=== PATIENT | female | born 1945 | race Caucasian/White ===

== ENCOUNTER → 2017-01-10 | Outpatient (CLI) | payer BC ==
[~2017-01-10] MED LIST: ALBU0.08 INH; BROVANA 15 MCG/2 ML INH; CONJ0.3T3 PO; LEVAAER2 INH; PRED50TA PO; SIMV40TA2 PO; TIOTCAP INH
--- NOTE | 2017-01-10 09:05 | DIAGNOSTIC IMAGING REPORT ---
CHEST 2 VIEWS ROUTINE HISTORY: G47.34 Nocturnal [id number] COMPARISON: Chest 11/21/2014. FINDINGS: A few linear densities at the right lung base suggestive of subsegmental atelectasis or scarring. No pleural fusions. No pneumothorax. Focal density overlying the lower thoracic spine on the lateral view which is new from the prior studies. This measures 2.7 cm. IMPRESSION: Focal irregular density overlying the thoracic spine on the lateral view. This is new from the prior studies. Follow-up nonemergent chest CT is recommended for further evaluation. Electronically signed by: Santhosh Tan M.D. 01/10/2017 9:04 AM Dictated Date/Time: 01/10/2017 9:01 AM
--- NOTE | 2017-01-10 09:06 | DIAGNOSTIC IMAGING REPORT ---
ABDOMEN 2 VIEWS CLINICAL HISTORY: G47.34 Nocturnal [id number] GENERALIZED ABDOMINAL DISCOMFORT COMPARISON STUDY: No previous studies for comparison. FINDINGS: There is no free air. There are no transition zones indicate bowel obstruction. There is scattered stool throughout the colon. There are no abnormal abdominal calcifications. There is lumbar scoliosis. IMPRESSION: No evidence of bowel obstruction. No evidence of free air. Electronically signed by: John Webb M.D. 01/10/2017 9:05 AM Dictated Date/Time: 01/10/2017 9:01 AM
[2017-01-10 09:40] LABS: BASO % 0.3 %; BASO ABS # 0.02 K/uL (0-0.2); COMPLETE YES; EOS % 2.9 %; HEMATOCRIT 36.1 % (37-47); IG% 0.2 %; LYMPH ABS # 2.35 K/uL (1.2-3.4); MEAN CELL VOLUME 87.2 fL (80-100); MEAN CORPUSCULAR HGB CONC 33.2 g/dl (32-36); MEAN PLATELET VOLUME 9.4 fL (7.4-10.4); MONO % 11.3 %; NEUT % 49.3 %; PLATELET COUNT 197 K/uL (130-400); RED BLOOD COUNT 4.14 M/uL (4.2-5.4); WHITE BLOOD COUNT 6.53 K/uL (4.8-10.8)
[2017-01-10 09:56] LABS: ALB/GLOB RATIO 1.1 (0.9-2); ALT/SGPT 19 U/L (12-78); AST/SGOT 11 U/L (15-37); BLOOD UREA NITROGEN 16 mg/dl (7-18); BUN/CREATININE RATIO 18.8 (10-20); CALCIUM 8.8 mg/dl (8.5-10.1); CARBON DIOXIDE 31 mmol/L (21-32); CHLORIDE 108 mmol/L (98-107); CHOLESTEROL 171 mg/dl (0-200); CREATININE 0.86 mg/dl (0.60-1.20); GLUCOSE 84 mg/dl (70-99); POTASSIUM 3.7 mmol/L (3.5-5.1); SODIUM 146 mmol/L (136-145); TRIGLYCERIDES 114 mg/dl (0-150); VERY LOW DENSITY LIPOPROT CALC 23 mg/dl
[2017-01-10 10:04] LABS: ALKALINE PHOSPHATASE 86 U/L (45-117); CHOLESTEROL/HDL RATIO 3.4; HDL CHOLESTEROL 50 mg/dl; LDL CHOLESTEROL CALCULATED 98 mg/dl; TOTAL IRON BINDING CAPACITY 294 mcg/dl (250-450)
--- NOTE | 2017-01-17 08:34 | CODING QUERY MEDICAL NECESSITY ---
SUPPORTING DIAGNOSIS NEEDED A supporting diagnosis is required for the test/procedure performed on this patient in order for us to be reimbursed by the patient's insurance. Please provide a supporting diagnosis for the following test/procedure listed below next to the test name along with your signature. *If there is no additional diagnosis for this patient that would support the following test/procedure please document that below next to the test/procedure. Test(s)/Procedure(s) that require a supporting diagnosis: * VITAMIN B-12 LEVEL DIAGNOSIS: * DOS: 01/10/17 Provider Signature: Date: Thank you Constance Arita Health Information Management Once completed, please kindly fax back to [phone] For questions please call [phone]
== END | disposition home or self-care (01) ==
LOC: C.RAD 08:10
PROVIDERS: ATTEND Internal Medicine Pulmonary Disease
DX: G47.34 Idiopathic sleep related nonobstructive alveolar hypoventilation (principal); R06.02 Shortness of breath; R93.7 Abnormal findings on diagnostic imaging of other parts of musculoskeletal system; R53.83 Other fatigue; Z79.899 Other long term (current) drug therapy; M79.606 Pain in leg, unspecified

== ENCOUNTER → 2017-01-17 | Outpatient (CLI) | payer BC ==
[~2017-01-17] MED LIST changes: +OPTIRAY 320 IV PRN
--- NOTE | 2017-01-17 16:05 | DIAGNOSTIC IMAGING REPORT ---
CHEST CT WITH CONTRAST CT DOSE: 276.21 mGycm HISTORY: Abnormal chest x-ray. COPD TECHNIQUE: Multiaxial CT images of the chest were performed following the intravenous administration of contrast. COMPARISON: Chest 01/10/2017. FINDINGS: Mild emphysema. The central airways are patent. Multiple scattered irregular groundglass and nodular opacities seen within the lungs. Linear density within the right lower lobe posteriorly likely corresponds to the chest x-ray abnormality. No pleural effusions. No pneumothorax. No mediastinal or hilar lymphadenopathy. Mediastinal vascular structures are within normal limits. 1 cm hypodense lesion within the spleen. The visualized liver and adrenal glands are unremarkable. The heart is normal in size. IMPRESSION: 1. Multiple scattered irregular groundglass and nodular airspace opacities seen within the lungs. This likely represents mild inflammatory/infectious change. 2. Linear density within the right lower lobe posteriorly corresponds the chest x-ray abnormality. This also likely represents an area of inflammatory/infectious change. 3. Recommend [address] follow-up to ensure resolution of these findings. 4. Mild emphysema. Electronically signed by: Santhosh Tan M.D. 01/17/2017 4:04 PM Dictated Date/Time: 01/17/2017 3:35 PM
== END | disposition home or self-care (01) ==
LOC: C.CTS 14:59
PROVIDERS: ATTEND Internal Medicine Pulmonary Disease
DX: J44.9 Chronic obstructive pulmonary disease, unspecified (principal); R91.8 Other nonspecific abnormal finding of lung field

== ENCOUNTER → 2017-03-16 | Outpatient (CLI) | payer BC ==
[~2017-03-16] MED LIST changes: -OPTIRAY 320 IV PRN
--- NOTE | 2017-03-16 12:23 | DIAGNOSTIC IMAGING REPORT ---
CHEST 2 VIEWS ROUTINE HISTORY: Abnormal chest x-ray. Follow-up. COMPARISON: Chest 01/10/2017. Chest CT 01/17/2017. FINDINGS: No pneumothorax. No pleural effusions. The heart is normal in size. Right basilar airspace opacity has almost completely resolved. There is a linear density remaining suggesting scarring or atelectasis. Small faint linear density within left midlung zone may also represent scarring or atelectasis. IMPRESSION: 1. Near complete resolution of the right basilar airspace opacity. 2. Tiny linear density within left midlung zone may represent atelectasis or scarring. Electronically signed by: Santhosh Tan M.D. 03/16/2017 12:22 PM Dictated Date/Time: 03/16/2017 12:16 PM
--- NOTE | 2017-03-18 11:52 | PULMONARY FUNCTION TEST ---
Interpretation based off ATS criteria. SPIROMETRY: Moderate obstructive ventilatory disease, no significant reversibility. LUNG VOLUMES: Within normal limits. DIFFUSION CAPACITY: Mildly decreased diffusion capacity, but corrects to normal based off alveolar volume. INTERPRETATION: Moderate obstructive ventilatory disease.
== END | disposition home or self-care (01) ==
LOC: C.RC 11:01
PROVIDERS: ATTEND Physician Assistant
DX: J44.9 Chronic obstructive pulmonary disease, unspecified (principal); R06.02 Shortness of breath

== ENCOUNTER → 2017-03-29 | Outpatient (CLI) | payer BC ==
[~2017-03-29] MED LIST changes: +OPTIRAY 320 IV PRN
--- NOTE | 2017-03-29 12:12 | DIAGNOSTIC IMAGING REPORT ---
CHEST CT WITH CONTRAST CT DOSE: 305.71 mGycm HISTORY: Parenchymal nodularity J44.9 Chronic obstructive pulmonary disease SCHEDULED 01-17-17 TECHNIQUE: Multiaxial CT images of the chest were performed following the intravenous administration of contrast. COMPARISON: 01/07/2017 FINDINGS: There is a groundglass and parenchymal nodularity show evidence for Lauren and waning. There is complete resolution in the lung bases are regions. There is subtle variability involving the left peripheral left upper lobe. Minimal residual is identified anterior right middle lobe. Pulmonary apices appear clear. Baseline emphysematous changes are similar. Several small reactive mediastinal nodes are unchanged. IMPRESSION: 1. Waxing/waning parenchymal nodularity, inflammatory change throughout both hemithoraces. 2. Although in general slightly improved., Mild variable residual nodularity is present. 3. Given this variability, it is most likely inflammatory with a one-year follow-up recommended Electronically signed by: Ramirez Suarez M.D. 03/29/2017 12:10 PM Dictated Date/Time: 03/29/2017 12:06 PM
== END | disposition home or self-care (01) ==
LOC: C.CTS 11:36
PROVIDERS: ATTEND Physician Assistant
DX: R93.8 Abnormal findings on diagnostic imaging of other specified body structures (principal); J44.9 Chronic obstructive pulmonary disease, unspecified

== ENCOUNTER → 2018-03-22 | Outpatient (CLI) | payer BC ==
[~2018-03-22] MED LIST changes: -OPTIRAY 320 IV PRN
[2018-03-22 17:02] LABS: ALBUMIN 4.1 gm/dl (3.4-5.0); ALKALINE PHOSPHATASE 92 U/L (45-117); ALT/SGPT 27 U/L (12-78); AST/SGOT 19 U/L (15-37); BLOOD UREA NITROGEN 24 mg/dl (7-18); CALCIUM 9.1 mg/dl (8.5-10.1); CARBON DIOXIDE 30 mmol/L (21-32); CREATININE 0.98 mg/dl (0.60-1.20); GLUCOSE 139 mg/dl (70-99); POTASSIUM 4.3 mmol/L (3.5-5.1); SODIUM 140 mmol/L (136-145); TOTAL PROTEIN 7.4 gm/dl (6.4-8.2)
[2018-03-22 17:53] LABS: FOLLICLE STIMULAT HORMONE 69.65 IU/L; LUTEINIZING HORMONE 26.99 IU/L
== END | disposition home or self-care (01) ==
LOC: C.LAB1850 14:43
PROVIDERS: ATTEND Physician Assistant
DX: R10.9 Unspecified abdominal pain (principal); E78.00 Pure hypercholesterolemia, unspecified; R93.8 Abnormal findings on diagnostic imaging of other specified body structures

== ENCOUNTER 2023-11-02 11:29 | Inpatient (IN) ==
--- NOTE | 2023-11-02 12:06 | XRay Report ---
XR chest 1V not portable CLINICAL HISTORY: Shortness of breath. COMPARISON STUDY: Chest CT June 26, 2023. Chest radiograph October 25, 2023. FINDINGS: Lung volumes are normal. Lungs are clear. There is no pneumothorax or pleural effusion. Car diac size is normal. Mediastinal contours are normal. There is no evidence for pulmonary edema. IMPRESSION: No acute cardiopulmonary findings. ACT 112: Negative or not required by law. Electronically signed by: Sandeep Chavira M.D. 11/02/2023 12:05 PM
[2023-11-02 12:36] LABS: Basophils # (auto) 0.03 K/uL (0.00-0.20); Basophils % (auto) 0.2 %; Eosinophils # (auto) 0.05 K/uL (0.00-0.50); Eosinophils % (auto) 0.3 %; Hematocrit (blood only) 39.6 % (37.0-47.0); Hemoglobin 13.3 g/dl (12.0-16.0); Immature Granulocytes # (auto) 0.09 K/uL (0.01-0.20); Immature Granulocytes % (auto) 0.6 %; Lymphocytes # (auto) 0.82 K/uL (1.20-3.40); Lymphocytes % (auto) 5.1 %; Mean Corpuscular Hemoglobin 29.3 pg (25.0-34.0); Mean Corpuscular Hgb Conc 33.6 g/dL (32.0-36.0); Mean Corpuscular Volume 87.2 fL (80.0-100.0); Mean Platelet Volume 8.9 fL (9.4-12.4); Monocytes # (auto) 0.68 K/uL (0.11-0.59); Monocytes % (auto) 4.2 %; Neutrophils # (auto) 14.42 K/uL (1.40-6.50); Neutrophils % (auto) 89.6 %; Platelet Count 215 K/uL (130-400); RDW Coefficient of Variation 13.9 % (11.5-14.5); RDW Standard Deviation 44.6 fL (36.4-46.3); Red Blood Count 4.54 M/uL (4.20-5.40); White Blood Count 16.09 K/ul (4.8-10.8)
[2023-11-02 12:50] LABS: Albumin Globulin Ratio 1.4 (0.9-2); Albumin Level 4.3 gm/dl (3.4-5.0); BUN Creatinine Ratio 24.1 (10-20); Bilirubin,Total 0.5 mg/dl (0.2-1.0); Calcium 9.6 mg/dl (8.6-10.3); Creatinine Clr Calc Pharmacy 51.1 ml/min; Est GFR (African American) 78.8 ml/min; Globulin 3.1 gm/dl (2.5-4.0); Potassium 4.1 mmol/L (3.5-5.1); Total Protein 7.4 gm/dl (6.0-8.3)
[2023-11-02 12:55] LABS: Troponin I High Sensitivity 6.5 pg/ml (0-14)
[2023-11-02 13:02] LABS: INR 0.9 (0.9-1.1); Partial Thromboplastin Ratio 0.9; Partial Thromboplastin Time 25 Seconds (21-31); Prothrombin Time 10.3 Seconds (9.0-12.0)
--- NOTE | 2023-11-02 15:04 | Pulmonary Consultation ---
Date of Consultation November 02, 2023 Assessment & Plan (1) Acute exacerbation of chronic obstructive airways disease: (2) Pulmonary scarring: (3) History of tobacco use: (4) Chronic obstructive pulmonary disease: (5) Dyspnea: (6) Acute bronchitis: (7) Bilateral wheezing: Plan PFT 01/28/2023: Severe obstructive lung dysfunction with significant bronchodilator response, air trapping, normal DLCO FVC 2.01 L 68%, FEV1 0.94 L 43%, FEV1/FVC 47%, RV 133%, TLC 95%, RV/TLC 124%, DLCO 81% CTA chest 11/02/2023 personally reviewed: Bilateral apical pleural scarring Centrilobular and paraseptal emphysema appreciated bilaterally Tree-in-bud opacities appreciated bilaterally especially in the lower lobes No significant mediastinal lymphadenopathy ABG 11/02/2023: 7.55/29/143 on RA -- COPD exacerbation with acute bronchitis Failed outpatient therapy Respiratory bio fire negative for everything on 11/02/2023 -- Severe COPD On BrezTri at home along with montelukast Plan: Upper airway clearance technique with hypertonic saline nebulized, Mucinex and flutter valve Continue with Solu-Medrol and inhaled bronchodilators Azithromycin 500 mg for 5 days, QTc 398 Case discussed with primary team Please note the above document was generated using voice recognition software. It may contain grammatical, syntax or spelling errors.Any formal questions or concerns about the content, text or information contained within the body of this dictation should be directly addressed to the provider for clarification. History of Present Illness History of Present Illness 77-year-old female presented to hospital complains of shortness of breath Past medical history: GERD, anxiety, COPD asthma overlap syndrome Pulmonary consulted for the same Patient follows up with Dr. Pelletier as an outpatient. Notes reviewed ED physician gave me a signout At the time of examination patient was getting nebulizer treatment She was saturating 100%, in mild respiratory distress. Able to talk in full sentences. She says she has been having issues with breathing for approximately a month. She was given multiple courses of prednisone but no antibiotics. Does complain of having feeling of phlegm but unable to bring it up When she does bring up phlegm is mostly clear. Denies any hemoptysis No fever or chills No dysuria, or diarrhea No headache, no blurry vision Social history: Approximately 13-[id number] smoking history, quit at the age of 54 Allergies Allergy/AdvReac Type Severity Reaction Status Date / Time No Known Drug Allergies Allergy Verified 10/25/23 10:30 Home Medications Medication Instructions Recorded Confirmed Type cholecalciferol (vitamin D3) 50 50 mcg PO QAM 09/24/19 11/02/23 History mcg (2,000 unit) capsule (Vitamin D3) cetirizine 5 mg-pseudoephedrine ER 1 tab PO Q12H PRN allergy symptoms 08/05/22 11/02/23 Rx 120 mg tablet,extended #60 tabs release,12hr (Allergy Relief-D (cetirizine)) multivitamin 1 tab PO QAM 08/20/22 11/02/23 History albuterol sulfate 90 mcg/actuation 2 inh inhalation QID PRN shortness 03/14/23 11/02/23 Rx aerosol inhaler of breath or wheezing #8.5 grams montelukast 10 mg tablet 10 mg PO DAILY #90 tabs 06/06/23 11/02/23 Rx (Singulair) escitalopram oxalate 5 mg tablet 5 mg PO QAM #90 tabs 07/13/23 11/02/23 Rx (Lexapro) simvastatin 20 mg tablet 10 mg (1/2 x 20 mg) PO QAM #90 tabs 08/26/23 11/02/23 Rx budesonide 160 mcg-glycopyr 9 2 inh inhalation DAILY 10/25/23 11/02/23 History mcg-formot 4.8 mcg/actuation HFA inhaler (Breztri Aerosphere) guaifenesin 600 mg tablet, 600 mg PO BID 10/25/23 11/02/23 History extended release 12 hr (Mucinex) ipratropium 0.5 mg-albuterol 3 mg 3 ml inhalation Q6H PRN wheezing 10/25/23 11/02/23 Rx (2.5 mg base)/3 mL nebulization #90 mL soln omeprazole magnesium 10 mg oral 10 mg PO DAILY 10/25/23 11/02/23 History suspension,delayed release (Prilosec) prednisone 10 mg tablets in a dose See Rx Instructions .Route 10/25/23 11/02/23 Rx pack .COMPLEX #42 ea vitamins A,C,B-naon-cvqefv 4,296 1 cap PO BID 10/25/23 11/02/23 History mcg-226 mg-90 mg capsule (PreserVision AREDS) Patient History Medical History Viral illness Pulmonary scarring Mediastinal lymphadenopathy Acute viral bronchitis Hypoxia Pulmonary nodule 1 cm or greater in diameter History of COVID-19 On home oxygen therapy Hyperlipidemia Nocturnal hypoxemia Asthma-COPD overlap syndrome Osteoarthritis GERD (gastroesophageal reflux disease) History of skin cancer Macular degeneration of both eyes Anxiety Chronic obstructive pulmonary disease Surgical History History of surgery Hx of bilateral cataract extraction Hx of colonoscopy Family History Mother Asthma Heart disease Hypertension Brother Cancer Stroke Bladder cancer Myocardial infarction Sister Hypertension Adverse anesthesia outcome Myocardial infarction Other Alzheimer disease COPD (chronic obstructive pulmonary disease) Diabetes No family history of bleeding disorder Denies family history of Ovarian cancer Prostate cancer Breast cancer Colorectal cancer Social History Smoking Status: Former smoker Tobacco Type: Cigarettes Age Started Using Tobacco: 17; Age Quit Using Tobacco: 54; packs per day: 1; Second Hand Exposure: No; Do You Dip or Chew Tobacco: No; Hx Alcohol Use: No Hx Substance Use: No Preferred Language: Pashto Communication Ability: Effective Visual Impairment: No Limitations Hearing Ability: Normal 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 Beliefs That Will Affect Care: None marital status: / Current Living Situation: Alone current occupational status: retired Feels Safe at Home: Yes Childhood Exposure to Second-Hand Smoke: Yes Dental Care, Regularly: Yes Physical Activity Frequency: Daily Seatbelt Use: always Sunscreen Use: Yes Assistive Devices: Denture - Upper, Denture - Lower and Glasses Review of Systems 2 Review of Systems: All systems reviewed & are unremarkable except as noted in HPI & below Physical Exam 2 Physical Exam: Constitutional: No acute distress HEENT: EOMI, PERRLA Respiratory system: Decreased air entry bilaterally, no rhonchi, positive expiratory wheeze bilaterally, positive mild crackles CVS: S1-S2 positive, no murmurs or gallops Abdomen: Soft, nontender, nondistended, positive bowel sounds x4 Extremities: +2 pulses bilaterally radialis/ dorsalis pedis, no cyanosis, no edema Neuro: Awake alert oriented x3 Psych: Normal mood and affect G/U: No [place] Skin: no rashes, warm and dry Lymphatic: no cervical or axillary lymphadenopathy Results & Data Results & Data Vital Signs (Past 12 Hours) Vital Signs Temp Pulse Resp BP Pulse Ox O2 Del Method 11/02/23 14:50 75 23 94 11/02/23 14:50 94 Room Air 11/02/23 14:40 72 15 93 11/02/23 14:30 110/55 L 11/02/23 14:30 71 22 94 11/02/23 14:25 72 11/02/23 14:20 71 19 94 11/02/23 14:18 73 19 94 11/02/23 11:36 36.5 C 98 H 20 116/69 92 Room Air Laboratory Results 11/02/23 12:14 11/02/23 12:14 PG Care Time/CCT Total # of Minutes Spent Total Time Spent with Patient: Total time spent is greater than 50% in coordination of care (as documented) at patient's floor/unit and/or counseling patient: Coding Level of Care Code 30618 INT INP/OBS CARE 3/75MIN Diagnoses Acute exacerbation of chronic obstructive airways disease J44.1 Pulmonary scarring J98.4 History of tobacco use Z87.891 Chronic obstructive pulmonary disease J44.9 Dyspnea R06.00 Acute bronchitis J20.9 Bilateral wheezing R06.2
[2023-11-02] MEDS ORDERED: methylPREDNISolone 125 MG/2 ML VIAL IV STA (15:24)
[2023-11-02] MEDS ORDERED: ALBUT/IPRATROP 3MG/0.5MG NEB 3 ML VIAL NEB STA (15:24)
--- NOTE | 2023-11-02 15:24 | Electrocardiogram Report ---
Test Reason : Blood Pressure : / mmHG Vent. Rate : 090 BPM Atrial Rate : 090 BPM P-R Int : 110 ms QRS Dur : 082 ms QT Int : 326 ms P-R-T Axes : 080 074 072 degrees QTc Int : 398 ms Sinus rhythm Right atrial enlargement Nonspecific ST abnormality Abnormal ECG When compared with ECG of 19-OCT-2023 11:38, Nonspecific T wave abnormality now evident in Lateral leads Confirmed by Rudy Fung ([id number]) on 11/02/2023 3:23:53 PM Referred By: Confirmed By:Eb Fung
--- NOTE | 2023-11-02 15:33 | Emergency Department Note ---
Impression & Plan Chronic obstructive pulmonary disease, Dyspnea, Bilateral wheezing ED Provider Note NAME: RAFAEL KAMARA AGE: 77 SEX: Female INFORMANT: Patient ED PROVIDER(S): Jordy Posey MD CHIEF COMPLAINT: Shortness of breath PLAN: Disposition: Admitted Outpatient prescription management: none Referral: None MEDICAL DECISION MAKING: Patient presented because of shortness of breath. Unfortunately she has not gotten better even with the last hospitalization and recent steroid use. Patient had wheezing even though she was not hypoxic. She has very significant dyspnea with minimal exertion. She has a mild leukocytosis on CBC, likely related to her steroids. Patient had an unremarkable chest x-ray except for COPD findings. Patient was given a DuoNeb and Solu-Medrol IV. I discussed the case with Dr. Muhammad of pulmonary. He recommended admission. We did discuss CT imaging. This was ordered. Further management in the hospital will be necessary. Consultation was made with Dr. Russell Lopez of the [facility] service. Patient was evaluated in the ER for further management. Care/management discussed with: Discussed with leasing manager Level of care consideration(s): After review of the information above and other included data, I feel the patient requires escalation of care to admission. Triage Nursing notes: reviewed and agree them. Vital Signs: reviewed and remarkable for no significant abnormalities Additional History obtained from: none Chronic Medical/Social Conditions affecting care: COPD Prior/ Outside/ External records reviewed: none Differential Diagnosis: Reactive airway disease, pneumonia, pneumothorax, COPD, CHF, infections, cardiac ischemia, pulmonary embolism, musculoskeletal, gastrointestinal, as well as other pathologies. Diagnostics, independently interpreted by me: ECG: Twelve-lead ECG reveals a sinus rhythm at 90 bpm. Short MS. Rate intra enlargement. Nonspecific ST abnormality anterolaterally. No ST elevation. No TWI. Cardiac Monitoring: Cardiac monitoring ordered by me: The patient was placed on continuous cardiac monitoring and observed. It revealed a normal sinus rhythm at 85 beats per minute without ectopy or evidence of dysrhythmia. Medical decision rules: none Imaging studies: Chest x-ray. Findings: A chest x-ray was performed and revealed no pneumothorax, effusion, infiltrate, pulmonary edema, free air under the diaphragm, or wide mediastinum. COPD findings present HPI: 77 year old Female arrives for evaluation of shortness of breath and wheezing. Patient notes over the last several weeks she has had problems with wheezing and difficulty with dyspnea on exertion. Patient was recently admitted and also seen by her primary physician. She notes they were for the same problem. No recent URI symptoms. The patient is currently on a steroid taper and unfortunately with that, her oxygen, and DuoNebs she is not getting any better. Pt denies LOC, headache, fevers, chills, diaphoresis, visual changes, neck pain, chest pain, nausea, vomiting, abdominal pain, back pain, melena, hematochezia, urinary symptoms, numbness, weakness, lymphadenopathy, rash, or other complaints.. PAST MEDICAL HISTORY: See Below, COPD PAST SURGICAL HISTORY: See Below, SOCIAL HISTORY: See Below, HOME MEDICATIONS: See Below ALLERGIES: See Below VITALS: See Below PHYSICAL EXAMINATION: GENERAL: Awake, alert, mildly dyspneic-appearing, in no distress HENT: Normocephalic, atraumatic. Oropharynx unremarkable. EYES: Normal conjunctiva. Sclera non-icteric. NECK: Inspection normal. Non-tender. Supple. No nuchal rigidity. FROM. No masses. RESPIRATORY: Scattered bilateral wheezes. No rales. Increased respiratory effort. CARDIAC: Normal rate. Normal rhythm. No murmurs. No rubs. Extremities warm and well perfused. Pulses equal. No JVD. GI: Soft, non-distended. No tenderness to palpation. No rebound or guarding. No masses. RECTAL: Deferred. MUSCULOSKELETAL: Atraumatic. Chest examination reveals no tenderness. The back is symmetrical on inspection without obvious abnormality. There is no CVA tenderness to palpation. No joint edema. LOWER EXTREMITIES: Calves are equal size bilaterally and non-tender. No edema. No discoloration. NEURO: Normal sensorium. No sensory or motor deficits noted. SKIN: No rash or jaundice noted. PROCEDURES: none CRITICAL CARE: none OBSERVATION NOTE: none Past Med/Surg History Medical History Viral illness Pulmonary scarring Mediastinal lymphadenopathy Acute viral bronchitis Hypoxia Pulmonary nodule 1 cm or greater in diameter History of COVID-19 On home oxygen therapy Hyperlipidemia Nocturnal hypoxemia Asthma-COPD overlap syndrome Osteoarthritis GERD (gastroesophageal reflux disease) History of skin cancer Macular degeneration of both eyes Anxiety Chronic obstructive pulmonary disease Surgical History History of surgery Hx of bilateral cataract extraction Hx of colonoscopy Family History Mother Asthma Heart disease Hypertension Brother Cancer Stroke Bladder cancer Myocardial infarction Sister Hypertension Adverse anesthesia outcome Myocardial infarction Other Alzheimer disease COPD (chronic obstructive pulmonary disease) Diabetes No family history of bleeding disorder Denies family history of Ovarian cancer Prostate cancer Breast cancer Colorectal cancer Social History Smoking Status: Former smoker Tobacco Type: Cigarettes Age Started Using Tobacco: 17; Age Quit Using Tobacco: 54; packs per day: 1; Second Hand Exposure: No; Do You Dip or Chew Tobacco: No; Hx Alcohol Use: No Hx Substance Use: No Preferred Language: Mongolian Communication Ability: Effective Visual Impairment: No Limitations Hearing Ability: Normal Scanner Supervisor Required: No Beliefs That Will Affect Care: None marital status: / Current Living Situation: Alone current occupational status: retired Feels Safe at Home: Yes Childhood Exposure to Second-Hand Smoke: Yes Dental Care, Regularly: Yes Physical Activity Frequency: Daily Seatbelt Use: always Sunscreen Use: Yes Assistive Devices: Denture - Upper, Denture - Lower and Glasses Allergies Allergies Allergy/AdvReac Type Severity Reaction Status Date / Time No Known Drug Allergies Allergy Verified 10/25/23 10:30 Home Meds Home Medications Medication Instructions Recorded Confirmed cholecalciferol (vitamin D3) 50 50 mcg PO QAM 09/24/19 11/02/23 mcg (2,000 unit) capsule (Vitamin D3) multivitamin 1 tab PO QAM 08/20/22 11/02/23 budesonide 160 mcg-glycopyr 9 2 inh inhalation DAILY 10/25/23 11/02/23 mcg-formot 4.8 mcg/actuation HFA inhaler (Breztri Aerosphere) guaifenesin 600 mg tablet, 600 mg PO BID 10/25/23 11/02/23 extended release 12 hr (Mucinex) omeprazole magnesium 10 mg oral 10 mg PO DAILY 10/25/23 11/02/23 suspension,delayed release (Prilosec) vitamins A,C,N-eifz-oglmxd 4,296 1 cap PO BID 10/25/23 11/02/23 mcg-226 mg-90 mg capsule (PreserVision AREDS) Previous Rx's Medication Instructions Recorded cetirizine 5 mg-pseudoephedrine ER 1 tab PO Q12H PRN allergy symptoms 08/05/22 120 mg tablet,extended #60 tabs release,12hr (Allergy Relief-D (cetirizine)) albuterol sulfate 90 mcg/actuation 2 inh inhalation QID PRN shortness 03/14/23 aerosol inhaler of breath or wheezing #8.5 grams montelukast 10 mg tablet 10 mg PO DAILY #90 tabs 06/06/23 (Singulair) escitalopram oxalate 5 mg tablet 5 mg PO QAM #90 tabs 07/13/23 (Lexapro) simvastatin 20 mg tablet 10 mg (1/2 x 20 mg) PO QAM #90 tabs 08/26/23 ipratropium 0.5 mg-albuterol 3 mg 3 ml inhalation Q6H PRN wheezing 10/25/23 (2.5 mg base)/3 mL nebulization #90 mL soln prednisone 10 mg tablets in a dose See Rx Instructions .Route 10/25/23 pack .COMPLEX #42 ea Results & Data (ED) Vital Signs Vital Signs - 24 hr 11/02/23 11:36 11/02/23 14:18 11/02/23 14:20 Temperature 36.5 C Temperature Source Temporal Artery Scan Pulse Rate 98 H 73 71 Pulse Rate [Exercises] Pulse Rate from SpO2 Sensor 72 71 Respiratory Rate 20 19 19 Respiratory Depth Normal Blood Pressure 116/69 Blood Pressure Mean 84 Blood Pressure Position Sitting Pulse Oximetry 92 94 94 Pulse Oximetry [Exercises] Oxygen Delivery Method Room Air Oxygen Flow Rate Sepsis Recent Fever Within 48 Hours No Sepsis New/Unexplained Change in Mental Status No Sepsis Action Taken by Nursing No Action Required 11/02/23 14:25 11/02/23 14:30 11/02/23 14:30 Temperature Temperature Source Pulse Rate 72 71 Pulse Rate [Exercises] Pulse Rate from SpO2 Sensor 72 Respiratory Rate 22 Respiratory Depth Blood Pressure 110/55 L Blood Pressure Mean 76 Blood Pressure Position Pulse Oximetry 94 Pulse Oximetry [Exercises] Oxygen Delivery Method Oxygen Flow Rate Sepsis Recent Fever Within 48 Hours Sepsis New/Unexplained Change in Mental Status Sepsis Action Taken by Nursing 11/02/23 14:40 11/02/23 14:50 11/02/23 14:50 Temperature Temperature Source Pulse Rate 72 75 Pulse Rate [Exercises] Pulse Rate from SpO2 Sensor 71 74 Respiratory Rate 15 23 Respiratory Depth Blood Pressure Blood Pressure Mean Blood Pressure Position Pulse Oximetry 93 94 94 Pulse Oximetry [Exercises] Oxygen Delivery Method Room Air Oxygen Flow Rate Sepsis Recent Fever Within 48 Hours Sepsis New/Unexplained Change in Mental Status Sepsis Action Taken by Nursing 11/02/23 15:00 11/02/23 15:00 11/02/23 15:00 Temperature Temperature Source Pulse Rate 73 Pulse Rate [Exercises] Pulse Rate from SpO2 Sensor 72 Respiratory Rate 18 Respiratory Depth Blood Pressure Blood Pressure Mean Blood Pressure Position Pulse Oximetry 95 95 93 Pulse Oximetry [Exercises] Oxygen Delivery Method Room Air Room Air Oxygen Flow Rate 0 Sepsis Recent Fever Within 48 Hours Sepsis New/Unexplained Change in Mental Status Sepsis Action Taken by Nursing 11/02/23 15:00 11/02/23 15:10 11/02/23 15:20 Temperature Temperature Source Pulse Rate 74 72 Pulse Rate [Exercises] Pulse Rate from SpO2 Sensor 75 73 Respiratory Rate 17 12 Respiratory Depth Blood Pressure 118/68 Blood Pressure Mean 87 Blood Pressure Position Pulse Oximetry 93 94 Pulse Oximetry [Exercises] Oxygen Delivery Method Oxygen Flow Rate Sepsis Recent Fever Within 48 Hours Sepsis New/Unexplained Change in Mental Status Sepsis Action Taken by Nursing 11/02/23 15:30 11/02/23 15:31 11/02/23 15:31 Temperature Temperature Source Pulse Rate 71 73 Pulse Rate [Exercises] Pulse Rate from SpO2 Sensor 70 75 Respiratory Rate 13 18 Respiratory Depth Blood Pressure 115/69 Blood Pressure Mean 87 Blood Pressure Position Pulse Oximetry 94 94 Pulse Oximetry [Exercises] Oxygen Delivery Method Oxygen Flow Rate Sepsis Recent Fever Within 48 Hours Sepsis New/Unexplained Change in Mental Status Sepsis Action Taken by Nursing 11/02/23 15:40 11/02/23 15:40 11/02/23 16:00 Temperature Temperature Source Pulse Rate 86 Pulse Rate [Exercises] 90 Pulse Rate from SpO2 Sensor 78 86 Respiratory Rate 23 Respiratory Depth Blood Pressure Blood Pressure Mean Blood Pressure Position Pulse Oximetry 94 96 Pulse Oximetry [Exercises] 92 Oxygen Delivery Method Room Air Oxygen Flow Rate Sepsis Recent Fever Within 48 Hours Sepsis New/Unexplained Change in Mental Status Sepsis Action Taken by Nursing 11/02/23 16:01 11/02/23 16:01 11/02/23 16:10 Temperature Temperature Source Pulse Rate 91 H 76 Pulse Rate [Exercises] Pulse Rate from SpO2 Sensor 90 76 Respiratory Rate 21 15 Respiratory Depth Blood Pressure 151/60 H Blood Pressure Mean 119 Blood Pressure Position Pulse Oximetry 95 100 Pulse Oximetry [Exercises] Oxygen Delivery Method Oxygen Flow Rate Sepsis Recent Fever Within 48 Hours Sepsis New/Unexplained Change in Mental Status Sepsis Action Taken by Nursing 11/02/23 16:20 Temperature Temperature Source Pulse Rate 88 Pulse Rate [Exercises] Pulse Rate from SpO2 Sensor 89 Respiratory Rate 22 Respiratory Depth Blood Pressure Blood Pressure Mean Blood Pressure Position Pulse Oximetry 97 Pulse Oximetry [Exercises] Oxygen Delivery Method Oxygen Flow Rate Sepsis Recent Fever Within 48 Hours Sepsis New/Unexplained Change in Mental Status Sepsis Action Taken by Nursing Laboratory Data 11/02/23 12:14 11/02/23 12:14 Lab Results 11/02/23 11/02/23 Range/Units 12:14 14:54 WBC 16.09 H (4.8-10.8) K/ul RBC 4.54 (4.20-5.40) M/uL Hgb 13.3 (12.0-16.0) g/dl Hct 39.6 (37.0-47.0) % MCV 87.2 (80.0-100.0) fL MCH 29.3 (25.0-34.0) pg MCHC 33.6 (32.0-36.0) g/dL RDW Std Deviation 44.6 (36.4-46.3) fL RDW Coeff of [place] 13.9 (11.5-14.5) % Plt Count 215 (130-400) K/uL MPV 8.9 L (9.4-12.4) fL Immature Gran % (Auto) 0.6 % Neut % (Auto) 89.6 % Lymph % (Auto) 5.1 % [place] % (Auto) 4.2 % Eos % (Auto) 0.3 % Baso % (Auto) 0.2 % Neut # (Auto) 14.42 H (1.40-6.50) K/uL Lymph # (Auto) 0.82 L (1.20-3.40) K/uL [place] # (Auto) 0.68 H (0.11-0.59) K/uL Eos # (Auto) 0.05 (0.00-0.50) K/uL Baso # (Auto) 0.03 (0.00-0.20) K/uL Immature Gran # (Auto) 0.09 (0.01-0.20) K/uL PT 10.3 (9.0-12.0) Seconds INR 0.9 (0.9-1.1) APTT 25 (21-31) Seconds PTT Ratio 0.9 Sodium 140 (136-145) mmol/L Potassium 4.1 (3.5-5.1) mmol/L Chloride 105 (98-107) mmol/L Carbon Dioxide 28 (21-32) mmol/L Anion Gap 7 (3-11) BUN 20 (6-23) mg/dl Creatinine 0.83 (0.6-1.2) mg/dl Est Cr Clr Drug Dosing 51.1 ml/min Est GFR ( Amer) 78.8 ml/min Est GFR (Non-Af Amer) 68.0 ml/min BUN/Creatinine Ratio 24.1 H (10-20) Glucose 111 H (70-99(Fasting)) mg/dl Calcium 9.6 (8.6-10.3) mg/dl Magnesium 2.3 (1.7-2.4) mg/dl Total Bilirubin 0.5 (0.2-1.0) mg/dl AST 17 (13-39) U/L ALT 21 (7-52) U/L Alkaline Phosphatase 80 (34-104) U/L Troponin I High Sens 6.5 (0-14) pg/ml Total Protein 7.4 (6.0-8.3) gm/dl Albumin 4.3 (3.4-5.0) gm/dl Globulin 3.1 (2.5-4.0) gm/dl Albumin/Globulin Ratio 1.4 (0.9-2) Adenovirus (PCR) Not Detected (NotDetected) B. pertussis DNA (PCR) Not Detected (NotDetected) B.parapertussis DNA PCR Not Detected (NotDetected) C. pneumoniae DNA (PCR) Not Detected (NotDetected) Coronavirus OC43 (PCR) Not Detected (NotDetected) Coronavirus HKU1 (PCR) Not Detected (NotDetected) Coronavirus 229E (PCR) Not Detected (NotDetected) SARS-CoV-2 (PCR) Not Detected (NotDetected) Coronavirus NL63 (PCR) Not Detected (NotDetected) Human Metapneumovir PCR Not Detected (NotDetected) Influenza Type A (PCR) Not Detected (NotDetected) Influenza Type B (PCR) Not Detected (NotDetected) M. pneumoniae (PCR) Not Detected (NotDetected) Parainfluenza 1 (PCR) Not Detected (NotDetected) Parainfluenza 2 (PCR) Not Detected (NotDetected) Parainfluenza 3 (PCR) Not Detected (NotDetected) Parainfluenza 4 (PCR) Not Detected (NotDetected) RSV (PCR) Not Detected (NotDetected) Entero/Rhino (PCR) Not Detected (NotDetected) Administered Medications Albuterol (Albut/Ipratrop 3mg/0.5mg Neb 3 Ml Vial) 3 ml NEB QIDR [facility]; Protocol Stop: 12/02/23 18:59 Last Admin: 11/02/23 16:46 Dose: 3 ml Documented By: EVANS Budesonide (Budesonide 0.5 Mg/2 Ml Vial (Pulmicort)) 0.5 mg NEB BIDR [facility] Stop: 12/02/23 18:59 Last Admin: 11/02/23 18:17 Dose: 0.5 mg Documented By: CARTER Enoxaparin Sodium (Enoxaparin Inj 40 Mg/0.4 Ml Syr) 40 mg SQ Q24H CARMEN Stop: 12/02/23 20:59 Last Admin: 11/02/23 21:01 Dose: 40 mg Documented By: CARLOS A Formoterol Fumarate (Formoterol 20 Mcg/2 Ml Vial) 20 mcg NEB BIDR [facility] Stop: 12/02/23 18:59 Last Admin: 11/02/23 18:17 Dose: 20 mcg Documented By: CARTER Guaifenesin (Guaifenesin 600 Mg Tabcr) 600 mg PO Q12 CARMEN Stop: 12/02/23 20:59 Last Admin: 11/02/23 21:02 Dose: 600 mg Documented By: CARLOS A Pantoprazole Sodium (Pantoprazole 40 Mg Tab) 40 mg PO BID CARMEN Stop: 12/02/23 20:59 Last Admin: 11/02/23 21:03 Dose: 40 mg Documented By: CARLOS A Simvastatin (Simvastatin 10 Mg Tab) 10 mg PO HS CARMEN Stop: 12/02/23 20:59 Last Admin: 11/02/23 21:03 Dose: 10 mg Documented By: CARLOS A Sodium Chloride (Sodium Chlor 7% 4 Ml Neb) 4 ml NEB BIDR CARMEN Stop: 12/02/23 18:59 Last Admin: 11/02/23 18:17 Dose: 4 ml Documented By: CARTER Discontinued Medications Albuterol (Albut/Ipratrop 3mg/0.5mg Neb 3 Ml Vial) 3 ml NEB NOW STA; Protocol Stop: 11/02/23 15:25 Last Admin: 11/02/23 16:03 Dose: 3 ml Documented By: TRACY Formoterol Fumarate (Formoterol 20 Mcg/2 Ml Vial) Confirm Administered Dose 20 mcg .ROUTE .STK-MED ONE Stop: 11/02/23 17:53 Last Admin: 11/02/23 18:17 Dose: Not Given Documented By: CARTER Azithromycin 500 mg/ Dextrose 255 mls @ 127.5 mls/hr IV NOW STA Stop: 11/02/23 18:28 Last Infusion: 11/02/23 19:50 Dose: Infused Documented By: CARLOS A Admin: 11/02/23 17:25 Dose: 127.5 mls/hr Documented By: EVANS Ioversol (Optiray 320 125ml) 120 ml IV ONCE ONE Stop: 11/02/23 15:49 Last Admin: 11/02/23 15:50 Dose: 120 ml Documented By: DUGLAS Methylprednisolone (Methylprednisolone 125 Mg/2 Ml Vial) 125 mg IV NOW STA Stop: 11/02/23 15:25 Last Admin: 11/02/23 15:59 Dose: 125 mg Documented By: TRACY Imaging Data Radiologist's Impression: Chest X-Ray 11/02/23 11:41 XR chest 1V not portable CLINICAL HISTORY: Shortness of breath. COMPARISON STUDY: Chest CT June 26, 2023. Chest radiograph October 25, 2023. FINDINGS: Lung volumes are normal. Lungs are clear. There is no pneumothorax or pleural effusion. Cardiac size is normal. Mediastinal contours are normal. There is no evidence for pulmonary edema. IMPRESSION: No acute cardiopulmonary findings. ACT 112: Negative or not required by law. Electronically signed by: Sandeep Chavira M.D. 11/02/2023 12:05 PM Chest CTA 11/02/23 15:26 CT ANGIOGRAM OF THE CHEST CLINICAL HISTORY: Dyspnea. COPD. COMPARISON STUDY: Chest CT dated 07/04/2023. Chest CT dated 11/02/2023. TECHNIQUE: Following the IV administration of 120 cc of Optiray 320, CT angiogram of the chest was performed from the upper abdomen to the thoracic inlet utilizing the pulmonary embolus protocol. Images are reviewed in the axial, sagittal, and coronal planes. 3-D MIPS images are created and assessed. IV contrast was administered without complication. A dose lowering technique was utilized adhering to the principles of ALARA. CT DOSE: 475.26 mGy.cm FINDINGS: Thyroid: Imaged portions of the thyroid gland are normal in size and attenuation. Thoracic aorta: There is atherosclerotic calcification of the thoracic aorta, which Is normal in caliber and demonstrates standard 3-vessel arch anatomy. No dissection is seen. Pulmonary vasculature: The pulmonary trunk is normal in caliber. There are no filling defects identified in main, lobar, or segmental pulmonary branches to suggest pulmonary embolus. Heart: The heart is normal in size and without pericardial effusion. There are coronary artery calcifications. Lungs and pleural spaces: Emphysematous change is noted. The trachea and central airways are clear. There is no lobar consolidation or pleural effusion. There is diffuse peribronchial thickening, with foci of tree-in-bud nodularity scattered throughout both lungs. This is new from 07/04/2023 and likely on an infectious/inflammatory basis. Mediastinum: There is no mediastinal lymphadenopathy. Christie: Clear. Axillae: There is no axillary lymphadenopathy. Upper abdomen: There are calcified granulomas in the spleen. Partially visualized upper abdominal viscera is otherwise within normal limits. Skeletal structures: The skeletal structures are osteopenic. No lytic or blastic bony lesions are seen. Degenerative change is noted in the shoulders and spine. IMPRESSION: 1. There is no evidence of pulmonary embolus in the main, lobar, or segmental pulmonary arteries. 2. Emphysema. 3. There is diffuse peribronchial thickening with foci of tree-in-bud nodularity scattered throughout both lungs. This is new from 07/04/2023, and likely represents an infectious/inflammatory pneumonitis. Clinical correlation will be required. A follow-up chest CT in 4-6 months time is recommended to document complete resolution. 4. Additional findings as above. ACT 112: Negative or not required by law. Electronically signed by: Luis Gardiner M.D. 11/02/2023 4:06 PM Discharge Plan Visit Data Chief Complaint: Shortness of Breath/Dyspnea Stated Complaint: SOB, REF BY DOC ED Provider: Jordy Posey Discharge Problem: Chronic obstructive pulmonary disease, Dyspnea, Bilateral wheezing Patient Disposition: Admitted As Inpatient Discharge Instructions Interventions: ED Discharge Assessment Last Done: 11/02/23 17:19
[2023-11-02] MEDS ORDERED: OPTIRAY 320 125ml IV ONE (15:48)
[2023-11-02 16:07] LABS: Adenovirus PCR Not Detected (NotDetected); Bordetella parapertussis PCR Not Detected (NotDetected); Bordetella pertussis PCR Not Detected (NotDetected); Chlamydia pneumoniae PCR Not Detected (NotDetected); Coronavirus 229E PCR Not Detected (NotDetected); Coronavirus CoV-2 (COVID19)PCR Not Detected (NotDetected); Coronavirus HKU1 PCR Not Detected (NotDetected); Coronavirus NL63 PCR Not Detected (NotDetected); Coronavirus OC43PCR Not Detected (NotDetected); Human Metapneumovirus PCR Not Detected (NotDetected); Influenza A PCR Not Detected (NotDetected); Influenza B PCR Not Detected (NotDetected); Mycoplasma pneumoniae PCR Not Detected (NotDetected); Parainfluenza Virus 1 PCR Not Detected (NotDetected); Parainfluenza Virus 2 PCR Not Detected (NotDetected); Parainfluenza Virus 3 PCR Not Detected (NotDetected); Parainfluenza Virus 4 PCR Not Detected (NotDetected); Respiratory Syncytial VirusPCR Not Detected (NotDetected); Rhinovirus/Enterovirus PCR Not Detected (NotDetected)
--- NOTE | 2023-11-02 16:07 | CT Scan Report ---
CT ANGIOGRAM OF THE CHEST CLINICAL HISTORY: Dyspnea. COPD. COMPARISON STUDY: Chest CT dated 07/04/2023. Chest CT dated 11/02/2023. TECHNIQUE: Following the IV administration of 120 cc of Optiray 320, CT angiogram of the chest was pe rformed from the upper abdomen to the thoracic inlet utilizing the pulmonary embolus protocol. Images are reviewed in the axial, sagittal, and coronal planes. 3-D MIPS images are created and assessed. I V contrast was administered without complication. A dose lowering technique was utilized adhering to the principles of ALARA. CT DOSE: 475.26 mGy.cm FINDINGS: Thyroid: Imaged portions of the thyroid gland are normal in size and attenuation. Thoracic aorta: There is atherosclerotic calcification of the thoracic aorta, which Is normal in [place] and demonstrates standard 3-vessel arch anatomy. No dissection is seen. Pulmonary vasculature: The pulmonary trunk is normal in caliber. There are no filling defects identif ied in main, lobar, or segmental pulmonary branches to suggest pulmonary embolus. Heart: The heart is normal in size and without pericardial effusion. There are coronary artery calcif ications. Lungs and pleural spaces: Emphysematous change is noted. The trachea and central airways are clear. T here is no lobar consolidation or pleural effusion. There is diffuse peribronchial thickening, with f oci of tree-in-bud nodularity scattered throughout both lungs. This is new from 07/04/2023 and likely on an infectious/inflammatory basis. Mediastinum: There is no mediastinal lymphadenopathy. Christie: Clear. Axillae: There is no axillary lymphadenopathy. Upper abdomen: There are calcified granulomas in the spleen. Partially visualized upper abdominal vis cera is otherwise within normal limits. Skeletal structures: The skeletal structures are osteopenic. No lytic or blastic bony lesions are see n. Degenerative change is noted in the shoulders and spine. IMPRESSION: 1. There is no evidence of pulmonary embolus in the main, lobar, or segmental pulmonary arteries. 2. Emphysema. 3. There is diffuse peribronchial thickening with foci of tree-in-bud nodularity scattered throughout both lungs. This is new from 07/04/2023, and likely represents an infectious/inflammatory pneumonitis . Clinical correlation will be required. A follow-up chest CT in 4-6 months time is recommended to do cument complete resolution. 4. Additional findings as above. ACT 112: Negative or not required by law. Electronically signed by: Luis Gardiner M.D. 11/02/2023 4:06 PM
--- NOTE | 2023-11-02 16:19 | History & Physical Report ---
Date of Service November 02, 2023 Assessment & Plan (1) Respiratory distress: Plan: -Admit to the PCU on tele and continuous pulse oximetry -Patient is currently stable on RA but with mild-moderate respiratory distress -Has been having progressive NORRIS/SOB over the past month -Has been on a 12 days prednisone taper which started at 60 mg Daily, currently on 30 mg -No signs of focal pneumonia on CXR or CTA, CTA negative for PE but shows signs consistent with inflammatory/infectious pneumonitis -Full respiratory biofire is negative -Patient's leukocytosis is likely due to current prednisone taper, low suspicion for systemic infection at this time -S/P 125 mg IV solu-medrol and an albuterol treatment in the ED -Will start a 5 day course of Azithromycin on admission -Will obtain stat ABG -Continue with 40 mg IV solu-medrol q8h, QID DuoNebs with q2h prn, will start Formoterol and budesonide nebulizers BID -Pulmonology is following, appreciate their assistance, they agree with the above plan and added nebulized hypertonic saline -Will add on mag level, if low or low-normal will give 2gm IV mag-sulfate for asthma exacerbation -Patient's respiratory status is improving with the currently hypertonic saline neb -Incentive spirometry, flutter therapy, prn O2 to keep SpO2 between 89-92%, 2L NC HS -SQ lovenox for DVT PPX -AM CBC, BMP, Mag, (2) Acute exacerbation of chronic obstructive airways disease: Plan: -See respiratory distress (3) GERD (gastroesophageal reflux disease): Plan: -Continue daily PPI, will increase to BID while on IV steroids (4) Nocturnal hypoxemia: Plan: -Continue 2L NC HS (5) Anxiety: Plan: -Continue Lexapro Plan The patient was discussed with Dr. Lopez at the time of the admission History of Present Illness Chief Complaint: Progressive NORRIS/SOB Primary Care Provider: Janelle Conroy MD Shannon is a 77 year old female with a PMH significant for COPD/Asthma overlap syndrome, nocturnal hypoxia on 2L NC HS, GERD, and and anxiety who presented to the [facility] ED on 11/02 with progressive SOB and NORRIS for the past month. She remained stable in the ED. Labs were significant for a leukocytosis of 16 with neutrophil predominance of 14 and full respiratory biofire negative. Chest xray was read as no acute findings. CTA of the chest was read as "1. There is no evidence of pulmonary embolus in the main, lobar, or segmental pulmonary arteries. 2. Emphysema. 3. There is diffuse peribronchial thickening with foci of tree-in-bud nodularity scattered throughout both lungs. This is new from 07/04/2023, and likely represents an infectious/inflammatory pneumonitis. Clinical correlation will be required. A follow-up chest CT in 4-6 months time is recommended to document complete resolution. 4. Additional findings as above.". Prior to admission the patient was given 125 mg IV Solu-Medrol and an albuterol treatment, . At the time of the exam the patient was sitting in bed in moderate respiratory distress as she is tachypneic with accessory muscle use. She states that she has been having progressive SOB and NORRIS for the past month. She states that she is still on her prednisone taper at 30 mg PO daily and has been using all inhalers and nebulizers as prescribed without relief. Her chronic cough has been more severe and she is currently producing yellow sputum, her baseline sputum color is white. She denies recent fever, chills, chest pain, hemoptysis, abd pain, nausea, vomiting, diarrhea, dysuria, hematuria, melena, LE Swelling, and recent trauma. She is a full code and would want her daughters to make medical decisions for her if she cannot make them herself. Please refer to Dr. Lopez's attestation for any changes to the treatment plan Allergies Allergy/AdvReac Type Severity Reaction Status Date / Time No Known Drug Allergies Allergy Verified 10/25/23 10:30 Home Medications Medication Instructions Recorded Confirmed Type cholecalciferol (vitamin D3) 50 50 mcg PO QAM 09/24/19 11/02/23 History mcg (2,000 unit) capsule (Vitamin D3) cetirizine 5 mg-pseudoephedrine ER 1 tab PO Q12H PRN allergy symptoms 08/05/22 11/02/23 Rx 120 mg tablet,extended #60 tabs release,12hr (Allergy Relief-D (cetirizine)) multivitamin 1 tab PO QAM 08/20/22 11/02/23 History albuterol sulfate 90 mcg/actuation 2 inh inhalation QID PRN shortness 03/14/23 11/02/23 Rx aerosol inhaler of breath or wheezing #8.5 grams montelukast 10 mg tablet 10 mg PO DAILY #90 tabs 06/06/23 11/02/23 Rx (Singulair) escitalopram oxalate 5 mg tablet 5 mg PO QAM #90 tabs 07/13/23 11/02/23 Rx (Lexapro) simvastatin 20 mg tablet 10 mg (1/2 x 20 mg) PO QAM #90 tabs 08/26/23 11/02/23 Rx budesonide 160 mcg-glycopyr 9 2 inh inhalation DAILY 10/25/23 11/02/23 History mcg-formot 4.8 mcg/actuation HFA inhaler (Breztri Aerosphere) guaifenesin 600 mg tablet, 600 mg PO BID 10/25/23 11/02/23 History extended release 12 hr (Mucinex) ipratropium 0.5 mg-albuterol 3 mg 3 ml inhalation Q6H PRN wheezing 10/25/23 11/02/23 Rx (2.5 mg base)/3 mL nebulization #90 mL soln omeprazole magnesium 10 mg oral 10 mg PO DAILY 10/25/23 11/02/23 History suspension,delayed release (Prilosec) prednisone 10 mg tablets in a dose See Rx Instructions .Route 10/25/23 11/02/23 Rx pack .COMPLEX #42 ea vitamins A,C,H-fnxa-tooyvv 4,296 1 cap PO BID 10/25/23 11/02/23 History mcg-226 mg-90 mg capsule (PreserVision AREDS) Past Med/Surg History Medical History Viral illness Pulmonary scarring Mediastinal lymphadenopathy Acute viral bronchitis Hypoxia Pulmonary nodule 1 cm or greater in diameter History of COVID-19 On home oxygen therapy Hyperlipidemia Nocturnal hypoxemia Asthma-COPD overlap syndrome Osteoarthritis GERD (gastroesophageal reflux disease) History of skin cancer Macular degeneration of both eyes Anxiety Chronic obstructive pulmonary disease Surgical History History of surgery Hx of bilateral cataract extraction Hx of colonoscopy Family History Mother Asthma Heart disease Hypertension Brother Cancer Stroke Bladder cancer Myocardial infarction Sister Hypertension Adverse anesthesia outcome Myocardial infarction Other Alzheimer disease COPD (chronic obstructive pulmonary disease) Diabetes No family history of bleeding disorder Denies family history of Ovarian cancer Prostate cancer Breast cancer Colorectal cancer Social History Smoking Status: Former smoker Tobacco Type: Cigarettes Age Started Using Tobacco: 17; Age Quit Using Tobacco: 54; packs per day: 1; Second Hand Exposure: No; Do You Dip or Chew Tobacco: No; Hx Alcohol Use: No Hx Substance Use: No Preferred Language: Nepali Communication Ability: Effective Visual Impairment: No Limitations Hearing Ability: Normal Skiver Hand Required: No Beliefs That Will Affect Care: None marital status: / Current Living Situation: Alone current occupational status: retired Feels Safe at Home: Yes Childhood Exposure to Second-Hand Smoke: Yes Dental Care, Regularly: Yes Physical Activity Frequency: Daily Seatbelt Use: always Sunscreen Use: Yes Assistive Devices: Denture - Upper, Denture - Lower and Glasses Physical Exam Physical Exam: Physical Exam: General: In mild distress due to respiratory status, stated age, non-toxic appearing HEENT: Normocephalic, atraumatic, no scleral icterus, pupils around round, symmetrical, and reactive to light, moist mucus membranes, trachea midline, no thyromegaly Chest/Pulm: No mild distress distress, improves with coaching and reassurance, symmetrical chest expansion, expiratory wheezing throughout Cardiac: RRR, no murmurs noted Abdomen: Negative for ascites and bruising, normoactive bowel sounds, soft, non-tender to palpation throughout Musculoskeletal: Symmetrical and without signs of acute trauma, upper and lower extremities with full ROM, no atrophy, spasticity, or flaccidity Extremities: Radial, dorsalis pedis, and posterior tibial pulses are intact and symmetrical, no edema noted in the BL LE's Skin: Warm, dry, no rashes , lesions, or scars noted Neuro: Alert and oriented to person, place, month, year, and president, no focal defects, no tremors noted Psych: Mild distress, but polite and cooperative during the exam Results & Data Results & Data Vital Signs (Past 12 Hours) Vital Signs Temp Pulse Pulse Resp BP Pulse Ox Pulse Ox 11/02/23 16:00 86 23 96 11/02/23 15:40 94 11/02/23 15:40 90 92 11/02/23 15:31 115/69 11/02/23 15:31 73 18 94 11/02/23 15:30 71 13 94 11/02/23 15:20 72 12 94 11/02/23 15:10 74 17 93 11/02/23 15:00 118/68 11/02/23 15:00 73 18 93 11/02/23 15:00 95 11/02/23 15:00 95 11/02/23 14:50 75 23 94 11/02/23 14:50 94 11/02/23 14:40 72 15 93 11/02/23 14:30 110/55 L 11/02/23 14:30 71 22 94 11/02/23 14:25 72 11/02/23 14:20 71 19 94 11/02/23 14:18 73 19 94 11/02/23 11:36 36.5 C 98 H 20 116/69 92 O2 Del Method O2 Flow Rate 11/02/23 16:00 11/02/23 15:40 11/02/23 15:40 Room Air 11/02/23 15:31 11/02/23 15:31 11/02/23 15:30 11/02/23 15:20 11/02/23 15:10 11/02/23 15:00 11/02/23 15:00 11/02/23 15:00 Room Air 11/02/23 15:00 Room Air 0 11/02/23 14:50 11/02/23 14:50 Room Air 11/02/23 14:40 11/02/23 14:30 11/02/23 14:30 11/02/23 14:25 11/02/23 14:20 11/02/23 14:18 11/02/23 11:36 Room Air Laboratory Results Abnormal lab results 11/02/23 Range/Units 12:14 WBC 16.09 H (4.8-10.8) K/ul MPV 8.9 L (9.4-12.4) fL Neut # (Auto) 14.42 H (1.40-6.50) K/uL Lymph # (Auto) 0.82 L (1.20-3.40) K/uL Webster # (Auto) 0.68 H (0.11-0.59) K/uL BUN/Creatinine Ratio 24.1 H (10-20) Glucose 111 H (70-99(Fasting)) mg/dl Diagnostic Findings Chest X-Ray 11/02/23 11:41 XR chest 1V not portable CLINICAL HISTORY: Shortness of breath. COMPARISON STUDY: Chest CT June 26, 2023. Chest radiograph October 25, 2023. FINDINGS: Lung volumes are normal. Lungs are clear. There is no pneumothorax or pleural effusion. Cardiac size is normal. Mediastinal contours are normal. There is no evidence for pulmonary edema. IMPRESSION: No acute cardiopulmonary findings. ACT 112: Negative or not required by law. Electronically signed by: Sandeep Chavira M.D. 11/02/2023 12:05 PM Chest CTA 11/02/23 15:26 CT ANGIOGRAM OF THE CHEST CLINICAL HISTORY: Dyspnea. COPD. COMPARISON STUDY: Chest CT dated 07/04/2023. Chest CT dated 11/02/2023. TECHNIQUE: Following the IV administration of 120 cc of Optiray 320, CT angiogram of the chest was performed from the upper abdomen to the thoracic inlet utilizing the pulmonary embolus protocol. Images are reviewed in the axial, sagittal, and coronal planes. 3-D MIPS images are created and assessed. IV contrast was administered without complication. A dose lowering technique was utilized adhering to the principles of ALARA. CT DOSE: 475.26 mGy.cm FINDINGS: Thyroid: Imaged portions of the thyroid gland are normal in size and attenuation. Thoracic aorta: There is atherosclerotic calcification of the thoracic aorta, which Is normal in caliber and demonstrates standard 3-vessel arch anatomy. No dissection is seen. Pulmonary vasculature: The pulmonary trunk is normal in caliber. There are no filling defects identified in main, lobar, or segmental pulmonary branches to suggest pulmonary embolus. Heart: The heart is normal in size and without pericardial effusion. There are coronary artery calcifications. Lungs and pleural spaces: Emphysematous change is noted. The trachea and central airways are clear. There is no lobar consolidation or pleural effusion. There is diffuse peribronchial thickening, with foci of tree-in-bud nodularity scattered throughout both lungs. This is new from 07/04/2023 and likely on an infectious/inflammatory basis. Mediastinum: There is no mediastinal lymphadenopathy. Christie: Clear. Axillae: There is no axillary lymphadenopathy. Upper abdomen: There are calcified granulomas in the spleen. Partially visualized upper abdominal viscera is otherwise within normal limits. Skeletal structures: The skeletal structures are osteopenic. No lytic or blastic bony lesions are seen. Degenerative change is noted in the shoulders and spine. IMPRESSION: 1. There is no evidence of pulmonary embolus in the main, lobar, or segmental pulmonary arteries. 2. Emphysema. 3. There is diffuse peribronchial thickening with foci of tree-in-bud nodularity scattered throughout both lungs. This is new from 07/04/2023, and likely represents an infectious/inflammatory pneumonitis. Clinical correlation will be required. A follow-up chest CT in 4-6 months time is recommended to document complete resolution. 4. Additional findings as above. ACT 112: Negative or not required by law. Electronically signed by: Luis Gardiner M.D. 11/02/2023 4:06 PM ECG Additional Comments: Sinus rhythm Right atrial enlargement Nonspecific ST abnormality Abnormal ECG When compared with ECG of 19-OCT-2023 11:38, Nonspecific T wave abnormality now evident in Lateral leads Confirmed by Rudy Fung ([id number]) on 11/02/2023 3:23:53 PM Code Status & VTE Plan Code Status Full code VTE Prophylaxis Plan VTE Prophylaxis will be ordered: Yes Supervising Physician Co-Signing Physician Notes Attending addendum: I have physically seen this patient, have supervised the DAYSI's activities, and agree with the H&P unless as otherwise noted. Assessment and Plan: Acute on chronic respiratory failure with hypoxia/COPD exacerbation- Admit to telemetry As an outpatient was placed on 12-day prednisone taper beginning at 60 mg and admitted down to 30 mg. BioFire panel negative Received Solu-Medrol 112 5 mg IV, ED and 8 albuterol treatment Duonebs every 4 hours while awake and every 2 hours when necessary. Solu-Medrol 40 mg IV every 8 hours Azithromycin 500 mg IV daily Guaifenesin extended release 1200 mg p.o. twice daily Continue montelukast Consult pulmonology, seen by Dr. Fan in the ED Nasal cannula oxygen, titrate to keep pulse ox 89-92%, has baseline 2 L nasal cannula oxygen requirement at home at bedtime Gastroesophageal reflux disease- Change omeprazole to pantoprazole per formulary interchange, and increase pantoprazole to 40 mg p.o. twice daily from baseline PPI Allergy- Continue cetirizine, hold pseudoephedrine PG Care Time/CCT Total # of Minutes Spent Total Time Spent with Patient: Total time spent is greater than 50% in coordination of care (as documented) at patient's floor/unit and/or counseling patient: Coding [place] [address] INT INP/OBS CARE 3/75MIN Patient Type Established Medical Decision Making High Complexity Diagnoses Respiratory distress R06.03 Acute exacerbation of chronic obstructive airways disease J44.1 GERD (gastroesophageal reflux disease) K21.9 Nocturnal hypoxemia G47.34 Anxiety F41.9
[2023-11-02] MEDS ORDERED: AZITHROMYCIN 500 MG in DEXTROSE 5% 250 ML IV STA (16:29)
[2023-11-02] MEDS: ALBUT/IPRATROP 3MG/0.5MG NEB 3 ML VIAL NEB SCH (16:46)
[2023-11-02 17:18] LABS: Magnesium 2.3 mg/dl (1.7-2.4)
[2023-11-02 17:23] LABS: Base Excess ABG 3.8 mEq/L (-9-1.8); HCO3 ABG 25 mmol/L (19-24); Oxygen Saturation ABG 99.2 % (90-95); PCO2 ABG 29 mmHg (35-46); PO2 ABG 143 mmHg (80-95)
[2023-11-02 17:29] LABS: Allen Test Pos (Pos)
[2023-11-02 17:36] LABS: pH ABG 7.55 (7.35-7.45)
[2023-11-02] MEDS ORDERED: FORMOTEROL 20 MCG/2 ML VIAL ONE (17:52)
[2023-11-02] MEDS: BUDESONIDE 0.5 MG/2 ML VIAL (PULMICORT) NEB SCH (18:17)
[2023-11-02] MEDS: SODIUM CHLOR 7% 4 ML NEB NEB SCH (18:17)
[2023-11-02] MEDS: FORMOTEROL 20 MCG/2 ML VIAL NEB SCH (18:17)
[2023-11-02] MEDS ORDERED: ARFORMOTEROL TART 15MCG/2ML VIAL INH SCH (19:00)
[2023-11-02] MEDS ORDERED: BUDESONIDE 0.5 MG/2 ML VIAL (PULMICORT) NEB SCH (19:00)
[2023-11-02] MEDS: ENOXAPARIN INJ 40 MG/0.4 ML SYR SQ SCH (21:01)
[2023-11-02] MEDS: guaiFENesin 600 MG TABCR PO SCH (21:02)
[2023-11-02] MEDS: PANTOprazole 40 MG TAB PO SCH (21:03)
[2023-11-02] MEDS: SIMVASTATIN 10 MG TAB PO SCH (21:03)
[2023-11-03] MEDS: SODIUM CHLOR 7% 4 ML NEB NEB SCH ×2 (07:08→19:41)
[2023-11-03] MEDS: BUDESONIDE 0.5 MG/2 ML VIAL (PULMICORT) NEB SCH ×2 (07:08→19:42)
[2023-11-03] MEDS: FORMOTEROL 20 MCG/2 ML VIAL NEB SCH ×2 (07:08→19:41)
[2023-11-03 07:51] LABS: Hematocrit (blood only) 38.6 % (37.0-47.0); Hemoglobin 12.8 g/dl (12.0-16.0); Mean Corpuscular Hemoglobin 29.4 pg (25.0-34.0); Mean Corpuscular Hgb Conc 33.2 g/dL (32.0-36.0); Mean Corpuscular Volume 88.7 fL (80.0-100.0); Mean Platelet Volume 9.1 fL (9.4-12.4); Platelet Count 204 K/uL (130-400); RDW Coefficient of Variation 13.7 % (11.5-14.5); RDW Standard Deviation 44.9 fL (36.4-46.3); Red Blood Count 4.35 M/uL (4.20-5.40); White Blood Count 10.73 K/ul (4.8-10.8)
[2023-11-03 07:56] LABS: BUN Creatinine Ratio 24.4 (10-20); Calcium 9.4 mg/dl (8.6-10.3); Creatinine Clr Calc Pharmacy 54.4 ml/min; Est GFR (Non-African American) 73.3 ml/min; Magnesium 2.5 mg/dl (1.7-2.4); Potassium 4.5 mmol/L (3.5-5.1)
[2023-11-03] MEDS: ESCITALOPRAM OXALATE 10 MG TAB PO SCH (08:10)
[2023-11-03] MEDS: guaiFENesin 600 MG TABCR PO SCH ×2 (08:10→20:22)
[2023-11-03] MEDS: PANTOprazole 40 MG TAB PO SCH ×2 (08:10→20:22)
[2023-11-03] MEDS: MONTELUKAST SODIUM 10 MG TABLET PO SCH (08:10)
[2023-11-03] MEDS: methylPREDNISolone 40 MG in SYRINGE 0 ML IV SCH ×3 (08:13→23:42)
[2023-11-03] MEDS: ALBUT/IPRATROP 3MG/0.5MG NEB 3 ML VIAL NEB SCH ×4 (08:26→19:42)
--- NOTE | 2023-11-03 11:47 | Pulmonology Progress Note ---
Date of Service November 03, 2023 Assessment & Plan (1) Pulmonary scarring: (2) History of tobacco use: (3) Chronic obstructive pulmonary disease: (4) Dyspnea: (5) Acute bronchitis: (6) Bilateral wheezing: Plan PFT 01/28/2023: Severe obstructive lung dysfunction with significant bronchodilator response, air trapping, normal DLCO FVC 2.01 L 68%, FEV1 0.94 L 43%, FEV1/FVC 47%, RV 133%, TLC 95%, RV/TLC 124%, DLCO 81% CTA chest 11/02/2023 personally reviewed: Bilateral apical pleural scarring Centrilobular and paraseptal emphysema appreciated bilaterally Tree-in-bud opacities appreciated bilaterally especially in the lower lobes No significant mediastinal lymphadenopathy ABG 11/02/2023: 7.55/29/143 on RA -- COPD exacerbation with acute bronchitis Failed outpatient therapy Respiratory bio fire negative for everything on 11/02/2023 -- Severe COPD On BrezTri at home along with montelukast Addition of azithromycin 250 mg [place]-Verfbcaxj-Hcjinu could be thought of on discharge --Ex-smoker Approximately [id number] smoking history Quit at the age of 54 Plan: Upper airway clearance technique with hypertonic saline nebulized, Mucinex and flutter valve Continue with Solu-Medrol and inhaled bronchodilators Add Mucomyst nebulized Azithromycin 500 mg for 5 days, QTc 398 Please note the above document was generated using voice recognition software. It may contain grammatical, syntax or spelling errors.Any formal questions or concerns about the content, text or information contained within the body of this dictation should be directly addressed to the provider for clarification. Admission and Anticipated Discharge Date Admission Date: November 02, 2023 Subjective Patient seen and examined at bedside. No acute distress, no adverse events overnight She states that she is feeling better compared to when I saw her in the ER Has been using flutter valve and incentive spirometry Bringing up clear phlegm. Denies any hemoptysis Fair appetite No headache Review of Systems 2 Review of Systems: All systems reviewed & are unremarkable except as noted in Subjective Physical Exam 2 Physical Exam: Constitutional: No acute distress HEENT: EOMI, PERRLA Respiratory system: Decreased air entry bilaterally, no rhonchi, positive expiratory wheeze bilaterally, positive mild crackles bilaterally CVS: S1-S2 positive, no murmurs or gallops Abdomen: Soft, nontender, nondistended, positive bowel sounds x4 Extremities: +2 pulses bilaterally radialis/ dorsalis pedis, no cyanosis, no edema Neuro: Awake alert oriented x3 Psych: Normal mood and affect G/U: No [place] Skin: no rashes, warm and dry Lymphatic: no cervical or axillary lymphadenopathy Results & Data Results & Data Vital Signs (Past 12 Hours) Vital Signs Temp Pulse Pulse Resp BP Pulse Ox O2 Del Method 11/03/23 11:03 36.9 C 85 22 128/68 91 Room Air 11/03/23 10:27 88 24 94 Room Air 11/03/23 08:36 66 11/03/23 08:30 Room Air 11/03/23 07:21 36.8 C 68 19 133/73 94 Room Air 11/03/23 07:10 72 18 94 Room Air 11/03/23 03:10 36.5 C 65 16 122/61 94 Room Air 11/03/23 00:00 69 Laboratory Results 11/03/23 07:05 11/03/23 07:05 PG Care Time/CCT Total # of Minutes Spent Total Time Spent with Patient: Total time spent is greater than 50% in coordination of care (as documented) at patient's floor/unit and/or counseling patient: Coding Level of Care Code 77031 SUB INP/OBS CARE 3/50MIN Diagnoses Pulmonary scarring J98.4 History of tobacco use Z87.891 Chronic obstructive pulmonary disease J44.9 Dyspnea R06.00 Acute bronchitis J20.9 Bilateral wheezing R06.2
--- NOTE | 2023-11-03 12:30 | Hospitalist Progress Note ---
Date of Service November 03, 2023 Assessment & Plan (1) Respiratory distress: Plan: Shortness of breath at rest has resolved. She is on room air. Continue treatment of acute bronchitis and exacerbation COPD. (2) Acute exacerbation of chronic obstructive airways disease: Plan: Improved with parenteral steroid therapy and scheduled nebulizers and treatment of underlying bronchitis. Pulmonary medicine consultation and recommendations appreciated. (3) GERD (gastroesophageal reflux disease): Plan: Stable. Continue PPI therapy (4) Nocturnal hypoxemia: Plan: Stable. Continue 2L NC HS (5) Anxiety: Plan: Stable. Continue Lexapro Plan Hopeful discharge to home within the next day or 2. Admission and Anticipated Discharge Date Admission Date: November 02, 2023 Subjective Alert and oriented. No acute distress. Pulmonary medicine consultation and recommendations appreciated. Overall, her medical status has improved since admission Review of Systems 2 Review of Systems: Constitutional-no fever or chills ENT-no blurred vision, no double vision, no epistaxis, no sore throat Respiratory-nonproductive cough. Wheezing. Shortness of breath at rest has resolved. Cardiac-no palpitations, no chest pain, no syncope GI-no nausea, vomiting, diarrhea, melena, hematochezia -no urinary retention, no urinary incontinence, no dysuria, no hematuria Musculoskeletal-no joint pain, no muscle tenderness Skin-no bruising, no rashes, no pruritus Neuro-no isolated weakness, no paresthesia, no weakness Psych-no depression, no anxiety Physical Exam 2 Physical Exam: General-alert and oriented x3, no fevers, no chills HEENT-head atraumatic and normocephalic, pupils equal and reactive to light, extraocular muscles intact Neck-no lymphadenopathy or thyromegaly, trachea midline Chest-diminished breath sounds bilaterally. Bilateral expiratory wheezes. Midline rhonchi. No dullness to percussion Cardiac-regular rate and rhythm, normal S1 and S2 Abdomen-normal bowel sounds, nontender, no hepatosplenomegaly Extremities-no cyanosis, clubbing, or edema Neuro-cranial nerves II through XII intact, motor and sensory function within normal limits, strength symmetrical, no focal deficits Psych-normal affect, normal mood Results & Data Results & Data Vital Signs (Past 12 Hours) Vital Signs Temp Pulse Pulse Resp BP Pulse Ox O2 Del Method 11/03/23 11:03 36.9 C 85 22 128/68 91 Room Air 11/03/23 10:27 88 24 94 Room Air 11/03/23 08:36 66 11/03/23 08:30 Room Air 11/03/23 07:21 36.8 C 68 19 133/73 94 Room Air 11/03/23 07:10 72 18 94 Room Air 11/03/23 03:10 36.5 C 65 16 122/61 94 Room Air Laboratory Results 11/03/23 07:05 11/03/23 07:05 PG Care Time/CCT Total # of Minutes Spent Total Time Spent with Patient: Total time spent is greater than 50% in coordination of care (as documented) at patient's floor/unit and/or counseling patient: Coding Level of Care Code 31310 SUB INP/OBS CARE 3/50MIN Diagnoses Respiratory distress R06.03 Acute exacerbation of chronic obstructive airways disease J44.1 GERD (gastroesophageal reflux disease) K21.9 Nocturnal hypoxemia G47.34 Anxiety F41.9
[2023-11-03] MEDS ORDERED: AZITHROMYCIN 500 MG in DEXTROSE 5% 250 ML IV SCH (16:00)
[2023-11-03] MEDS ORDERED: ACETYLCYSTEINE 20% INHAL SOLN 4ML ***DISPENSED BY RESP. INH SCH (16:15)
[2023-11-03] MEDS: ACETYLCYSTEINE 20% INHAL SOLN 4ML ***DISPENSED BY RESP. INH SCH (19:42)
[2023-11-03] MEDS: ENOXAPARIN INJ 40 MG/0.4 ML SYR SQ SCH (20:21)
[2023-11-03] MEDS: SIMVASTATIN 10 MG TAB PO SCH (20:22)
[2023-11-04 06:19] LABS: Hematocrit (blood only) 36.4 % (37.0-47.0); Hemoglobin 12.1 g/dl (12.0-16.0); Mean Corpuscular Hemoglobin 29.2 pg (25.0-34.0); Mean Corpuscular Hgb Conc 33.2 g/dL (32.0-36.0); Mean Corpuscular Volume 87.7 fL (80.0-100.0); Mean Platelet Volume 8.8 fL (9.4-12.4); Platelet Count 195 K/uL (130-400); RDW Coefficient of Variation 13.8 % (11.5-14.5); RDW Standard Deviation 44.3 fL (36.4-46.3); Red Blood Count 4.15 M/uL (4.20-5.40); White Blood Count 13.49 K/ul (4.8-10.8)
[2023-11-04 06:45] LABS: Calcium 9.3 mg/dl (8.6-10.3); Potassium 4.4 mmol/L (3.5-5.1)
[2023-11-04 06:50] LABS: BUN Creatinine Ratio 26.4 (10-20); Creatinine Clr Calc Pharmacy 46.6 ml/min; Est GFR (African American) 70.5 ml/min; Est GFR (Non-African American) 60.9 ml/min
[2023-11-04] MEDS: BUDESONIDE 0.5 MG/2 ML VIAL (PULMICORT) NEB SCH ×2 (07:19→20:17)
[2023-11-04] MEDS: FORMOTEROL 20 MCG/2 ML VIAL NEB SCH ×2 (07:20→20:17)
[2023-11-04] MEDS: SODIUM CHLOR 7% 4 ML NEB NEB SCH ×2 (07:20→20:17)
[2023-11-04] MEDS: ACETYLCYSTEINE 20% INHAL SOLN 4ML ***DISPENSED BY RESP. INH SCH ×2 (07:20→20:16)
--- NOTE | 2023-11-04 07:27 | Pulmonology Progress Note ---
Date of Service November 04, 2023 Assessment & Plan (1) Pulmonary scarring: (2) History of tobacco use: (3) Chronic obstructive pulmonary disease: (4) Dyspnea: (5) Acute bronchitis: (6) Bilateral wheezing: Plan PFT 01/28/2023: Severe obstructive lung dysfunction with significant bronchodilator response, air trapping, normal DLCO FVC 2.01 L 68%, FEV1 0.94 L 43%, FEV1/FVC 47%, RV 133%, TLC 95%, RV/TLC 124%, DLCO 81% CTA chest 11/02/2023 personally reviewed: Bilateral apical pleural scarring Centrilobular and paraseptal emphysema appreciated bilaterally Tree-in-bud opacities appreciated bilaterally especially in the lower lobes No significant mediastinal lymphadenopathy ABG 11/02/2023: 7.55//143 on RA -- COPD exacerbation with acute bronchitis Failed outpatient therapy Respiratory bio fire negative for everything on 11/02/2023 -- Severe COPD On BrezTri at home along with montelukast Addition of azithromycin 250 mg Dsdpza-Fgbxjsdgu-Gputon could be thought of on discharge --Ex-smoker Approximately 24-[id number]-lzdr smoking history Quit at the age of 54 Plan: Upper airway clearance technique with hypertonic saline nebulized, Mucinex and flutter valve Decrease Solu-Medrol to 40 mg every 12 Would recommend to even continue with Mucomyst and hypertonic saline nebulized at home on discharge Azithromycin 500 mg for 5 days, QTc 398 Please note the above document was generated using voice recognition software. It may contain grammatical, syntax or spelling errors.Any formal questions or concerns about the content, text or information contained within the body of this dictation should be directly addressed to the provider for clarification. Admission and Anticipated Discharge Date Admission Date: November 02, 2023 Subjective Patient seen and examined at bedside. No acute distress, no adverse events overnight She feels better compared to when she came to the hospital Mucomyst nebulizer did help her. She is bringing up clear phlegm. No hemoptysis Appetite is fair No chest pain. Review of Systems 2 Review of Systems: All systems reviewed & are unremarkable except as noted in Subjective Physical Exam 2 Physical Exam: Constitutional: No acute distress HEENT: EOMI, PERRLA Respiratory system: Decreased air entry bilaterally, no rhonchi, no wheeze, positive mild crackles bilaterally CVS: S1-S2 positive, no murmurs or gallops Abdomen: Soft, nontender, nondistended, positive bowel sounds x4 Extremities: +2 pulses bilaterally radialis/ dorsalis pedis, no cyanosis, no edema Neuro: Awake alert oriented x3 Psych: Normal mood and affect G/U: No [place] Skin: no rashes, warm and dry Lymphatic: no cervical or axillary lymphadenopathy Results & Data Results & Data Vital Signs (Past 12 Hours) Vital Signs Temp Pulse Pulse Resp BP Pulse Ox O2 Del Method 11/04/23 07:25 70 17 98 Room Air 11/04/23 03:10 36.5 C 71 18 133/69 95 Nasal Cannula 11/03/23 23:00 84 11/03/23 22:29 36.7 C 75 16 117/54 L 96 Nasal Cannula 11/03/23 20:20 89 132/71 11/03/23 20:00 Room Air 11/03/23 19:44 76 20 92 Room Air 11/03/23 19:43 36.7 C 84 18 171/74 H 91 Room Air O2 Flow Rate FiO2 11/04/23 07:25 21 11/04/23 03:10 2 11/03/23 23:00 11/03/23 22:29 2 11/03/23 20:20 11/03/23 20:00 11/03/23 19:44 11/03/23 19:43 Laboratory Results 11/04/23 06:03 11/04/23 06:03 PG Care Time/CCT Total # of Minutes Spent Total Time Spent with Patient: Total time spent is greater than 50% in coordination of care (as documented) at patient's floor/unit and/or counseling patient: Coding Level of Care Code 61704 SUB INP/OBS CARE 2/35MIN Diagnoses Pulmonary scarring J98.4 History of tobacco use Z87.891 Chronic obstructive pulmonary disease J44.9 Dyspnea R06.00 Acute bronchitis J20.9 Bilateral wheezing R06.2
[2023-11-04] MEDS: ALBUT/IPRATROP 3MG/0.5MG NEB 3 ML VIAL NEB SCH ×4 (07:56→20:17)
[2023-11-04] MEDS: guaiFENesin 600 MG TABCR PO SCH ×2 (08:10→20:09)
[2023-11-04] MEDS: PANTOprazole 40 MG TAB PO SCH ×2 (08:10→20:08)
[2023-11-04] MEDS: ESCITALOPRAM OXALATE 10 MG TAB PO SCH (08:11)
[2023-11-04] MEDS: MONTELUKAST SODIUM 10 MG TABLET PO SCH (08:11)
[2023-11-04] MEDS: methylPREDNISolone 40 MG in SYRINGE 0 ML IV SCH ×2 (08:11→20:07)
--- NOTE | 2023-11-04 15:05 | Hospitalist Progress Note ---
Date of Service November 04, 2023 Assessment & Plan (1) Respiratory distress: Plan: Shortness of breath at rest has resolved. She is on room air. Continue treatment of acute bronchitis and exacerbation COPD. (2) Acute exacerbation of chronic obstructive airways disease: Plan: Improved with parenteral steroid therapy and scheduled nebulizers and treatment of underlying bronchitis. Pulmonary medicine consultation and recommendations appreciated. (3) GERD (gastroesophageal reflux disease): Plan: Stable. Continue PPI therapy (4) Nocturnal hypoxemia: Plan: Stable. Continue 2L NC HS (5) Anxiety: Plan: Stable. Continue Lexapro Plan Hopeful discharge to home within the next day or 2. Hopefully tomorrow, November 05 Admission and Anticipated Discharge Date Admission Date: November 02, 2023 Subjective Improving. She still has some wheezing. She remains on room air. She is flushed from the steroid therapy. Hopefully she can go home tomorrowNovember 05 Review of Systems 2 Review of Systems: Constitutional-no fever or chills ENT-no blurred vision, no double vision, no epistaxis, no sore throat Respiratory-nonproductive cough. Wheezing. Shortness of breath at rest has resolved. Cardiac-no palpitations, no chest pain, no syncope GI-no nausea, vomiting, diarrhea, melena, hematochezia -no urinary retention, no urinary incontinence, no dysuria, no hematuria Musculoskeletal-no joint pain, no muscle tenderness Skin-no bruising, no rashes, no pruritus Neuro-no isolated weakness, no paresthesia, no weakness Psych-no depression, no anxiety Physical Exam 2 Physical Exam: General-alert and oriented x3, no fevers, no chills HEENT-head atraumatic and normocephalic, pupils equal and reactive to light, extraocular muscles intact Neck-no lymphadenopathy or thyromegaly, trachea midline Chest-diminished breath sounds bilaterally. Bilateral expiratory wheezes. Midline rhonchi. No dullness to percussion Cardiac-regular rate and rhythm, normal S1 and S2 Abdomen-normal bowel sounds, nontender, no hepatosplenomegaly Extremities-no cyanosis, clubbing, or edema Neuro-cranial nerves II through XII intact, motor and sensory function within normal limits, strength symmetrical, no focal deficits Psych-normal affect, normal mood Results & Data Results & Data Vital Signs (Past 12 Hours) Vital Signs Temp Pulse Pulse Resp BP Pulse Ox O2 Del Method 12/29/23 12:05 37.0 C 86 16 130/66 90 Room Air 11/04/23 11:16 76 15 93 Room Air 11/04/23 08:17 Room Air 11/04/23 08:00 36.4 C L 82 20 128/81 96 Nasal Cannula 11/04/23 07:30 67 11/04/23 07:25 70 17 98 Room Air 11/04/23 03:10 36.5 C 71 18 133/69 95 Nasal Cannula O2 Flow Rate FiO2 11/04/23 12:05 11/04/23 11:16 21 11/04/23 08:17 11/04/23 08:00 2 11/04/23 07:30 11/04/23 07:25 21 11/04/23 03:10 2 Laboratory Results 11/04/23 06:03 11/04/23 06:03 PG Care Time/CCT Total # of Minutes Spent Total Time Spent with Patient: Total time spent is greater than 50% in coordination of care (as documented) at patient's floor/unit and/or counseling patient: Coding Level of Care Code 59158 SUB INP/OBS CARE 2/35MIN Diagnoses Respiratory distress R06.03 Acute exacerbation of chronic obstructive airways disease J44.1 GERD (gastroesophageal reflux disease) K21.9 Nocturnal hypoxemia G47.34 Anxiety F41.9
[2023-11-04] MEDS ORDERED: AZITHROMYCIN 250 MG TAB PO SCH (16:00)
[2023-11-04] MEDS: ENOXAPARIN INJ 40 MG/0.4 ML SYR SQ SCH (20:08)
[2023-11-04] MEDS: SIMVASTATIN 10 MG TAB PO SCH (20:09)
[2023-11-05 06:37] LABS: Hematocrit (blood only) 37.5 % (37.0-47.0); Hemoglobin 12.5 g/dl (12.0-16.0); Mean Corpuscular Hemoglobin 29.1 pg (25.0-34.0); Mean Corpuscular Hgb Conc 33.3 g/dL (32.0-36.0); Mean Corpuscular Volume 87.2 fL (80.0-100.0); Platelet Count 204 K/uL (130-400); RDW Coefficient of Variation 13.9 % (11.5-14.5); RDW Standard Deviation 44.8 fL (36.4-46.3); White Blood Count 12.91 K/ul (4.8-10.8)
[2023-11-05 06:48] LABS: Calcium 9.4 mg/dl (8.6-10.3); Creatinine Clr Calc Pharmacy 45.6 ml/min; Est GFR (African American) 68.7 ml/min; Est GFR (Non-African American) 59.3 ml/min; Potassium 4.5 mmol/L (3.5-5.1)
[2023-11-05] MEDS: SODIUM CHLOR 7% 4 ML NEB NEB SCH (07:17)
[2023-11-05] MEDS: ALBUT/IPRATROP 3MG/0.5MG NEB 3 ML VIAL NEB SCH ×2 (07:17→11:11)
[2023-11-05] MEDS: FORMOTEROL 20 MCG/2 ML VIAL NEB SCH (07:17)
[2023-11-05] MEDS: BUDESONIDE 0.5 MG/2 ML VIAL (PULMICORT) NEB SCH (07:18)
[2023-11-05] MEDS: ACETYLCYSTEINE 20% INHAL SOLN 4ML ***DISPENSED BY RESP. INH SCH (07:18)
[2023-11-05] MEDS: ESCITALOPRAM OXALATE 10 MG TAB PO SCH (08:08)
[2023-11-05] MEDS: methylPREDNISolone 40 MG in SYRINGE 0 ML IV SCH (08:08)
[2023-11-05] MEDS: MONTELUKAST SODIUM 10 MG TABLET PO SCH (08:09)
[2023-11-05] MEDS: guaiFENesin 600 MG TABCR PO SCH (08:09)
[2023-11-05] MEDS: PANTOprazole 40 MG TAB PO SCH (08:09)
--- NOTE | 2023-11-05 12:23 | Pulmonology Progress Note ---
Date of Service November 05, 2023 Assessment & Plan (1) Pulmonary scarring: (2) History of tobacco use: (3) Chronic obstructive pulmonary disease: (4) Dyspnea: (5) Acute bronchitis: (6) Bilateral wheezing: Plan PFT 01/28/2023: Severe obstructive lung dysfunction with significant bronchodilator response, air trapping, normal DLCO FVC 2.01 L 68%, FEV1 0.94 L 43%, FEV1/FVC 47%, RV 133%, TLC 95%, RV/TLC 124%, DLCO 81% CTA chest 11/02/2023 personally reviewed: Bilateral apical pleural scarring Centrilobular and paraseptal emphysema appreciated bilaterally Tree-in-bud opacities appreciated bilaterally especially in the lower lobes No significant mediastinal lymphadenopathy ABG 11/02/2023: 7.55/29/143 on RA -- COPD exacerbation with acute bronchitis Failed outpatient therapy Respiratory bio fire negative for everything on 11/02/2023 -- Severe COPD On BrezTri at home along with montelukast Addition of azithromycin 250 mg Fzitox-Nwxywbfsu-Pvmpec could be thought of on discharge --Ex-smoker Approximately 55-aqbl-owwl smoking history Quit at the age of 54 Plan: Upper airway clearance technique with hypertonic saline nebulized, Mucinex and flutter valve Transition Solu-Medrol to prednisone and tapered off in 5 days Would recommend to even continue with Mucomyst and hypertonic saline nebulized at home on discharge complete the course of Azithromycin 500 mg for 5 days, QTc 398 Please note the above document was generated using voice recognition software. It may contain grammatical, syntax or spelling errors.Any formal questions or concerns about the content, text or information contained within the body of this dictation should be directly addressed to the provider for clarification. Admission and Anticipated Discharge Date Admission Date: November 02, 2023 Subjective Patient seen and examined at bedside. No acute distress, notable since overnight She states that she is feeling much better Has been coughing and bringing up clear phlegm Shortness of breath is significantly improved No chest pain, no chest tightness No headache, no blurry vision Fair appetite Review of Systems 2 Review of Systems: All systems reviewed & are unremarkable except as noted in Subjective Physical Exam 2 Physical Exam: Constitutional: No acute distress HEENT: EOMI, PERRLA Respiratory system: Decreased air entry bilaterally, no rhonchi, no wheeze, positive mild crackles bilaterally CVS: S1-S2 positive, no murmurs or gallops Abdomen: Soft, nontender, nondistended, positive bowel sounds x4 Extremities: +2 pulses bilaterally radialis/ dorsalis pedis, no cyanosis, no edema Neuro: Awake alert oriented x3 Psych: Normal mood and affect G/U: No [place] Skin: no rashes, warm and dry Lymphatic: no cervical or axillary lymphadenopathy Results & Data Results & Data Vital Signs (Past 12 Hours) Vital Signs Temp Pulse Pulse Resp BP Pulse Ox O2 Del Method 11/05/23 12:18 36.7 C 83 17 134/65 92 Room Air 11/05/23 11:11 87 15 94 Room Air 11/05/23 08:37 71 11/05/23 08:37 Room Air 11/05/23 08:34 36.7 C 70 18 146/80 H 97 Room Air 11/05/23 07:21 84 18 95 Room Air 11/05/23 03:00 36.4 C L 71 15 108/61 91 Room Air Laboratory Results 11/05/23 05:47 11/05/23 05:47 PG Care Time/CCT Total # of Minutes Spent Total Time Spent with Patient: Total time spent is greater than 50% in coordination of care (as documented) at patient's floor/unit and/or counseling patient: Coding Level of Care Code 14255 SUB INP/OBS CARE 2/35MIN Diagnoses Pulmonary scarring J98.4 History of tobacco use Z87.891 Chronic obstructive pulmonary disease J44.9 Dyspnea R06.00 Acute bronchitis J20.9 Bilateral wheezing R06.2
--- NOTE | 2023-11-05 12:30 | Discharge Summary ---
Date of Service November 05, 2023 Admission HPI Per Admitting Provider Shannon is a 77 year old female with a PMH significant for COPD/Asthma overlap syndrome, nocturnal hypoxia on 2L NC HS, GERD, and and anxiety who presented to the [facility] ED on 11/02 with progressive SOB and NORRIS for the past month. She remained stable in the ED. Labs were significant for a leukocytosis of 16 with neutrophil predominance of 14 and full respiratory biofire negative. Chest xray was read as no acute findings. CTA of the chest was read as "1. There is no evidence of pulmonary embolus in the main, lobar, or segmental pulmonary arteries. 2. Emphysema. 3. There is diffuse peribronchial thickening with foci of tree-in-bud nodularity scattered throughout both lungs. This is new from 07/04/2023, and likely represents an infectious/inflammatory pneumonitis. Clinical correlation will be required. A follow-up chest CT in 4-6 months time is recommended to document complete resolution. 4. Additional findings as above.". Prior to admission the patient was given 125 mg IV Solu-Medrol and an albuterol treatment, . At the time of the exam the patient was sitting in bed in moderate respiratory distress as she is tachypneic with accessory muscle use. She states that she has been having progressive SOB and NORRIS for the past month. She states that she is still on her prednisone taper at 30 mg PO daily and has been using all inhalers and nebulizers as prescribed without relief. Her chronic cough has been more severe and she is currently producing yellow sputum, her baseline sputum color is white. She denies recent fever, chills, chest pain, hemoptysis, abd pain, nausea, vomiting, diarrhea, dysuria, hematuria, melena, LE Swelling, and recent trauma. She is a full code and would want her daughters to make medical decisions for her if she cannot make them herself. Please refer to Dr. Lopez's attestation for any changes to the treatment plan Principal Diagnosis Acute bronchitis, acute exacerbation COPD Discharge Exam General-alert and oriented x3, no fevers, no chills HEENT-head atraumatic and normocephalic, pupils equal and reactive to light, extraocular muscles intact Neck-no lymphadenopathy or thyromegaly, trachea midline Chest-diminished breath sounds bilaterally. Bilateral expiratory wheezes have nearly completely resolved. Midline rhonchi has nearly completely resolved. No dullness to percussion Cardiac-regular rate and rhythm, normal S1 and S2 Abdomen-normal bowel sounds, nontender, no hepatosplenomegaly Extremities-no cyanosis, clubbing, or edema Neuro-cranial nerves II through XII intact, motor and sensory function within normal limits, strength symmetrical, no focal deficits Psych-normal affect, normal mood Discharge Data Allergies Allergy/AdvReac Type Severity Reaction Status Date / Time No Known Drug Allergies Allergy Verified 10/25/23 10:30 Consultations 11/02/23 16:17 ED Decision to Admit Stat Ordered Studies 11/02/23 15:26 CT angio chest PE protocol Stat Hospital Course (1) Respiratory distress: Shortness of breath at rest has resolved. She is on room air. Continue treatment of acute bronchitis and exacerbation COPD. (2) Acute exacerbation of chronic obstructive airways disease: Improved with parenteral steroid therapy and scheduled nebulizers and treatment of underlying bronchitis. Pulmonary medicine consultation and recommendations appreciated. (3) GERD (gastroesophageal reflux disease): Stable. Continue PPI therapy (4) Nocturnal hypoxemia: Stable. Continue 2L NC HS (5) Anxiety: Stable. Continue Lexapro Plan Home today, November 05, on azithromycin and prednisone tapering dose. She has been instructed by pulmonary medicine to continue saline nebulizers Total Time Total Time Spent Total Time Spent (In Minutes): 45 minutes Discharge Plan Discharge Items Patient Disposition: Home - Self-Care Reason For Visit: SOB, INFECTIOUS/INFLAMMATORY PNEUMONITIS Discharge Diagnosis: Acute bronchitis, acute exacerbation COPD Activity: Resume your previous activity Non-emergency contact: Primary Care Provider and Presentation Designer Call non-emergency contact if: you have any medication questions and your symptoms worsen Follow-up/Referrals: Janelle Conroy MD [Primary Care Provider] - Diet: Regular Addtl Attending Provider Instructions: Take azithromycin daily for 5 more days. Take prednisone in a tapering dose fashion as directed. Continue nebulizer treatments as instructed by pulmonary medicine Pending Studies at Discharge: No Stand-Alone Forms: My [employer], Smoking Cessation Medications and DC Order Prescriptions: New azithromycin 250 mg Tablet 500 mg PO DAILY Qty: 5 0RF sodium chloride 7 % Solution For Nebulization 4 ml NEB BIDR Qty: 120 0RF prednisone 10 mg tablet See Rx Instructions .ROUTE .COMPLEX Qty: 18 0RF Rx Instructions: 10 mg orally 3 times a day for 3 days, then 10 mg twice a day for 3 days, then 10 mg once a day for 3 days, then stop Continued escitalopram oxalate [Lexapro] 5 mg tablet 5 mg PO QAM Qty: 90 1RF simvastatin 20 mg tablet 10 mg PO QAM Qty: 90 3RF Rx Instructions: 20 mg orally take one half tablet daily; montelukast [Singulair] 10 mg tablet 10 mg PO DAILY Qty: 90 3RF cetirizine-pseudoephedrine [Allergy Relief-D (cetirizine)] 5-120 mg tablet extended release 12 hr 1 tab PO Q12H PRN (Reason: allergy symptoms) Qty: 60 1RF albuterol sulfate 90 mcg/actuation HFA aerosol inhaler 2 inh inhalation QID PRN (Reason: shortness of breath or wheezing) Qty: 8.5 5RF Breztri Aerosphere 160-9-4.8 mcg/actuation HFA aerosol inhaler 2 inh inhalation DAILY Prilosec 10 mg susp,delayed release for recon 10 mg PO DAILY guaifenesin [Mucinex] 600 mg tablet extended release 12hr 600 mg PO BID PreserVision AREDS 4,296 mcg-226 mg-90 mg capsule 1 cap PO BID ipratropium-albuterol 0.5 mg-3 mg(2.5 mg base)/3 mL solution for nebulization 3 ml inhalation Q6H PRN (Reason: wheezing) Qty: 90 5RF prednisone 10 mg tablets,dose pack See Rx Instructions .Route .COMPLEX Qty: 42 0RF Rx Instructions: 60 mg p.o. q.day x2 days, 50 mg p.o. q.day x2 days, 40 mg p.o. q.day x2 days, 30 mg p.o. q.day x2 days, 20 mg p.o. q.day x2 days, 10 mg p.o. q.day x2 days then stop cholecalciferol (vitamin D3) [Vitamin D3] 50 mcg (2,000 unit) Capsule 50 mcg PO QAM multivitamin Tablet 1 tab PO QAM Discharge Orders: Discharge Order (Routine); Ordered 11/05/23 Ordered By: Jacob Najera Admission Data Admit Date/Time: 11/02/23 16:28 Attending Provider: Jacob Najera Admit Provider: Russell Lopez Primary Care Provider: Janelle Conroy Other Providers: Russell Lopez Coding Level of Care Code 59638 INP/OBS DISCH >30 MIN Diagnoses Respiratory distress R06.03 Acute exacerbation of chronic obstructive airways disease J44.1 GERD (gastroesophageal reflux disease) K21.9 Nocturnal hypoxemia G47.34 Anxiety F41.9
--- NOTE | 2023-11-10 15:08 | Coding Query ---
To promote full compliance with coding requirements relating to patient care, provider participation is requested in all cases of reproduction specialist uncertainty. Please assist us with the question(s) below: Coding Question(s): The diagnosis below was documented in the H&P, by the Supervising Physician, then subsequently fell off all further documentation. Please indicate if it is still a possible diagnosis or ruled out. Physician's Response(s): ACUTE ON CHRONIC RESPIRATORY FAILURE WITH HYPOXIA (documented on the H&P by the Supervising Physician) ( ) Diagnosed ( x ) Ruled out ( ) Other (please specify) ) MTDD
== END 2023-11-05 13:28 | disposition home or self-care (01) | DRG 192 ==
LOC: ED 11:29 → 2S 16:28 → SUATTDRO 16:28 → 2S 17:19

== ENCOUNTER 2023-11-24 10:27 | Inpatient (IN) ==
[2023-11-24] MEDS ORDERED: ALBUT/IPRATROP 3MG/0.5MG NEB 3 ML VIAL INH STA (11:20)
[2023-11-24] MEDS ORDERED: methylPREDNISolone 125 MG/2 ML VIAL IV STA (11:20)
--- NOTE | 2023-11-24 11:40 | Emergency Department Note ---
ED Visit Note Physician Evaluation Note: Patient was seen in conjunction with the midlevel provider. Please see the midlevel provider note for full details of the patient's visit. I have personally evaluated and examined this patient. Patient presented to the ED with shortness of breath and wheezing. Patient does have history of COPD. She states that she has had the symptoms for over 2 months. On my assessment here in the ED the patient does exhibit some tachypnea with significant bilateral wheezing consistent with COPD exacerbation. Patient was given nebulizer treatments here in the ED as well as IV steroids. Venous blood gas does not show any evidence of any significant hypercarbic respiratory failure. Given the patient's increased work of breathing, she will be admitted to the hospitalist service for further management. I agree with assessment and plan of DEO Alfaro DO .
--- NOTE | 2023-11-24 11:56 | XRay Report ---
SINGLE VIEW CHEST CLINICAL HISTORY: Dyspnea FINDINGS: An AP, portable, upright chest radiograph is compared to chest x-ray and chest CT dated . The cardiomediastinal silhouette is unremarkable noting atherosclerotic calcification of the thoracic aorta. Emphysema and chronic interstitial thickening is similar to previous. There is bibas ilar scarring/atelectasis. No airspace consolidation or pleural effusion is identified. No pneumothor ax is seen. The skeletal structures are osteopenic. The bony thorax is grossly intact. IMPRESSION: Emphysematous change with no active disease in the chest. ACT 112: Negative or not required by law. Electronically signed by: Luis Gardiner M.D. 11/24/2023 11:55 AM
[2023-11-24 11:59] LABS: Basophils # (auto) 0.02 K/uL (0.00-0.20); Basophils % (auto) 0.3 %; Eosinophils # (auto) 0.28 K/uL (0.00-0.50); Hematocrit (blood only) 37.6 % (37.0-47.0); Hemoglobin 12.7 g/dl (12.0-16.0); Immature Granulocytes # (auto) 0.02 K/uL (0.01-0.20); Immature Granulocytes % (auto) 0.3 %; Lymphocytes # (auto) 1.82 K/uL (1.20-3.40); Lymphocytes % (auto) 26.3 %; Mean Corpuscular Hemoglobin 29.5 pg (25.0-34.0); Mean Corpuscular Hgb Conc 33.8 g/dL (32.0-36.0); Mean Corpuscular Volume 87.2 fL (80.0-100.0); Mean Platelet Volume 8.8 fL (9.4-12.4); Monocytes # (auto) 0.76 K/uL (0.11-0.59); Neutrophils # (auto) 4.03 K/uL (1.40-6.50); Neutrophils % (auto) 58.1 %; Platelet Count 161 K/uL (130-400); RDW Coefficient of Variation 13.6 % (11.5-14.5); RDW Standard Deviation 43.6 fL (36.4-46.3); Red Blood Count 4.31 M/uL (4.20-5.40); White Blood Count 6.93 K/ul (4.8-10.8)
[2023-11-24 12:00] LABS: Base Excess VBG 4.2 mEq/L; HCO3 VBG 28 mmol/L; Oxygen Saturation VBG 78.2 %; PCO2 VBG 40 mmHg (38-50); PO2 VBG 46 mmHg; pH VBG 7.46 (7.36-7.41)
[2023-11-24 12:15] LABS: Alanine Aminotransferase 20 U/L (7-52); Albumin Globulin Ratio 1.2 (0.9-2); Albumin Level 3.6 gm/dl (3.4-5.0); Alkaline Phosphatase 69 U/L (34-104); Anion Gap 6 (3-11); Aspartate Aminotransferase 22 U/L (13-39); BUN Creatinine Ratio 17.2 (10-20); Bilirubin,Total 0.5 mg/dl (0.2-1.0); Blood Urea Nitrogen 15 mg/dl (6-23); Calcium 8.9 mg/dl (8.6-10.3); Carbon Dioxide 28 mmol/L (21-32); Chloride 106 mmol/L (98-107); Est GFR (African American) 74.5 ml/min; Est GFR (Non-African American) 64.3 ml/min; Globulin 2.9 gm/dl (2.5-4.0); Glucose 98 mg/dl (70-99(Fasting)); Magnesium 2.3 mg/dl (1.7-2.4); Potassium 4.3 mmol/L (3.5-5.1); Sodium 140 mmol/L (136-145); Total Protein 6.5 gm/dl (6.0-8.3)
[2023-11-24 12:21] LABS: Troponin I High Sensitivity 5.2 pg/ml (0-14)
[2023-11-24] MEDS ORDERED: ALBUT/IPRATROP 3MG/0.5MG NEB 3 ML VIAL NEB STA (12:34)
--- NOTE | 2023-11-24 12:52 | History & Physical Report ---
Date of Service November 24, 2023 Assessment & Plan (1) Acute exacerbation of chronic obstructive pulmonary disease (COPD): Plan: Worsening SOB and productive cough x 2mo No leukocytosis; afebrile; will defer antibiotics at this time pending procalcitonin and sputum culture [id number]/46/28 EKG revealed NSR at 84 bpm; QTc 399 CXR revealed emphysematous change with no active disease in the chest Echocardiogram ordered, pending; patient was scheduled to have one done in December BioFire ordered, pending Procalcitonin ordered, pending Sputum culture ordered, pending DuoNeb 3 mL x 2 and Solu-Medrol 125 mg given in the ED Solu-Medrol 40 mg IV TID DuoNeb 3 mL QIDR Incentive spirometry Flutter valve QID Supplemental oxygen as needed to maintain SpO2 >92% Continue hypertonic 7% nebulizers BIDR Guaifenesin 600 mg p.o. q12h for cough BiPAP as needed A.m. CBC, BMP (2) Nocturnal hypoxemia: Plan: 2L NC HS (and as needed) (3) Depression: Plan: Continue escitalopram (4) Hyperlipidemia: Plan: Continue simvastatin (5) GERD (gastroesophageal reflux disease): Plan: Continue omeprazole, or pantoprazole equivalent Plan Disposition: Admit to [facility] telemetry Full code Regular diet DVT PPx: Lovenox 40mg SQ q24h History of Present Illness Chief Complaint: SOB/dyspnea Primary Care Provider: Janelle Conroy MD Shannon is a 77-year-old female with PMH of asthmaCOPD overlap, HLD, depression, chronic sinusitis, and osteopenia. She presented for worsening SOB and cough x 2 months. She has been to the ED 3 times within the past 5 days. She feels that this is a COPD exacerbation that is unable to clear up. She was seen by pulmonology on 11/16/2023 and received 125 mg Solu-Medrol and DuoNeb in the office; sent home on 20 mg twice daily prednisone taper x 5 days. She endorses SOB with exertion and at rest; it is worse with exertion. It is not positional (not worse when laying flat). Patient reports that she could barely get out of the shower this morning because she was too short of breath. She has been using hypertonic saline 7% nebulizers at home 4 times daily, which she reports helps. Patient reports that she has a pulse ox at home, and that she is normally in the low 90% range. She denies smoking, tobacco use, and alcohol use. She reports that she took all of her regular morning medications; no recent changes in medications. Patient lives alone. No recent falls or fainting. Patient also notes that she occasionally feels intermittent periods of warmth with chest palpitations. Patient had an episode of 87% SpO2 in the ED. Her vitals are stable at time of admission, after receiving second DuoNeb treatment. ED course: DuoNeb 3 mL x 2 Solu-Medrol 125 mg IV ROS: Patient endorses SOB with exertion and at rest, productive cough (clear sputum production), pleuritic CP, wheezing, chest heaviness, intermittent chest palpitations, and dizziness when standing. Patient denies fever, chills, sweating, chest pain, MCKEE, hemoptysis, abdominal pain, N/V/D, dysuria, burning with urination, numbness and tingling aches in the arms or legs. Allergies Allergy/AdvReac Type Severity Reaction Status Date / Time No Known Drug Allergies Allergy Verified 11/16/23 09:23 Home Medications Medication Instructions Recorded Confirmed Type cholecalciferol (vitamin D3) 50 50 mcg PO QAM 09/24/19 11/24/23 History mcg (2,000 unit) capsule (Vitamin D3) cetirizine 5 mg-pseudoephedrine ER 1 tab PO Q12H PRN allergy symptoms 08/05/22 11/24/23 Rx 120 mg tablet,extended #60 tabs release,12hr (Allergy Relief-D (cetirizine)) multivitamin 1 tab PO QAM 08/20/22 11/24/23 History albuterol sulfate 90 mcg/actuation 2 inh inhalation QID PRN shortness 03/14/23 11/24/23 Rx aerosol inhaler of breath or wheezing #8.5 grams montelukast 10 mg tablet 10 mg PO DAILY #90 tabs 06/06/23 11/24/23 Rx (Singulair) simvastatin 20 mg tablet 10 mg (1/2 x 20 mg) PO QAM #90 tabs 08/26/23 11/24/23 Rx budesonide 160 mcg-glycopyr 9 2 inh inhalation DAILY 10/25/23 11/24/23 History mcg-formot 4.8 mcg/actuation HFA inhaler (Breztri Aerosphere) guaifenesin 600 mg tablet, 600 mg PO BID 10/25/23 11/24/23 History extended release 12 hr (Mucinex) ipratropium 0.5 mg-albuterol 3 mg 3 ml inhalation Q6H PRN wheezing 10/25/23 11/24/23 Rx (2.5 mg base)/3 mL nebulization #90 mL soln vitamins A,C,T-wqre-fhowed 4,296 1 cap PO BID 10/25/23 11/24/23 History mcg-226 mg-90 mg capsule (PreserVision AREDS) sodium chloride 7 % for 4 ml NEB BIDR #120 mL 11/05/23 11/24/23 Rx nebulization escitalopram oxalate 10 mg tablet 10 mg PO QAM #90 tabs 11/16/23 11/24/23 Rx hydroxyzine HCl 25 mg tablet 25 mg PO HS allergies 11/24/23 11/24/23 History omeprazole 20 mg capsule,delayed 20 mg PO QAM 11/24/23 11/24/23 History release Past Med/Surg History Medical History (Updated 11/24/23 @ 13:51 by Santhosh Gomes PA-C) GERD (gastroesophageal reflux disease) Nocturnal hypoxemia on 2l O2 at night Osteopenia Prediabetes Mild mitral regurgitation History of tobacco use Acute exacerbation of chronic obstructive pulmonary disease (COPD) Viral illness Pulmonary scarring Mediastinal lymphadenopathy Acute viral bronchitis Hypoxia Pulmonary nodule 1 cm or greater in diameter PET 04/13/2023 with 15mm RUL nodule with no abnormal FDG uptake History of COVID-19 2020, 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 On home oxygen therapy 2L O2 at night via [place] Hyperlipidemia Asthma-COPD overlap syndrome inh daily and prn, nebulizer prn Osteoarthritis History of skin cancer removed-forehead, nose, and cheek Macular degeneration of both eyes gets injections every 3 months. Anxiety Surgical History (Updated 11/19/23 @ 00:11 by Ida Rene) History of surgery trigger finger release Hx of bilateral cataract extraction Hx of colonoscopy Family History Mother Asthma Heart disease Hypertension Brother Cancer Stroke Bladder cancer Myocardial infarction Sister Hypertension Adverse anesthesia outcome Myocardial infarction Other Alzheimer disease COPD (chronic obstructive pulmonary disease) Diabetes No family history of bleeding disorder Denies family history of Ovarian cancer Prostate cancer Breast cancer Colorectal cancer Social History Smoking Status: Never smoker Tobacco Type: Cigarettes Age Started Using Tobacco: 17; Age Quit Using Tobacco: 54; packs per day: 1; Second Hand Exposure: No; Do You Dip or Chew Tobacco: No; Hx Alcohol Use: No Hx Substance Use: No Preferred Language: [place]ian Communication Ability: Effective Visual Impairment: No Limitations Hearing Ability: Normal Automation Machine Operator Required: No Beliefs That Will Affect Care: None marital status: / Current Living Situation: Alone current occupational status: retired Feels Safe at Home: Yes Childhood Exposure to Second-Hand Smoke: Yes Dental Care, Regularly: Yes Physical Activity Frequency: Daily Seatbelt Use: always Sunscreen Use: Yes Assistive Devices: Denture - Upper, Denture - Lower, Glasses and Oxygen - at Night Review of Systems Review of Systems: See HPI above Physical Exam Physical Exam: General: Acute respiratory distress; gasping between breaths; non-toxic appearing; well-nourished; cooperative HEENT: normocephalic, atraumatic; no scleral icterus; PERRLA; dry mucus membrane; vision and hearing grossly intact Neck: supple; no lymphadenopathy; trachea midline Skin: warm, dry without signs of tenting; no cyanosis; no rashes, bruising, lesions, or erythema noted CV: chest wall NTP; RRR; S1/S2 normal; no murmurs/rubs/gallops; pulses intact and symmetric at radial, DP, and PT Lungs: acute respiratory distress; barrel chested; tachypneic; accessory muscle use; symmetrical chest wall expansion; expiratory wheeze across all lung hutton bilaterally ABD: Soft, NTP; BS present; no rebound/guarding; MSK: no tics or fasciculations; no edema noted in the LEs b/l, nonerythematous Neuro: A&Ox3; normal mood and affect; fluent speech; no focal deficits; sensation grossly intact in the LEs b/l Results & Data Results & Data Vital Signs (Past 12 Hours) Vital Signs Temp Pulse Pulse Resp BP Pulse Ox O2 Del Method 11/24/23 12:34 26 H 11/24/23 12:03 82 11/24/23 11:57 83 19 92 Room Air 11/24/23 11:20 94 Room Air 11/24/23 10:28 Room Air 11/24/23 10:28 36.6 C 106 H 18 115/63 94 Room Air Code Status & VTE Plan Code Status Full code VTE Prophylaxis Plan VTE Prophylaxis will be ordered: Yes Supervising Physician Co-Signing Physician Notes Patient seen and examined, chart reviewed, case discussed with Santhosh Gomes PA-C and I agree with the assessment and plan as above except as otherwise noted Labs and images reviewed Shannon 'Bee Naik is a 77-year-old female with a history of pulmonary nodules, COPD, hyperlipidemia, asthma overlap, and GERD who is seen for weakness, shortness of breath with hypoxia on ambulation and general unwellness. She was recently seen by pulmonology 1 week ago and was given Solu-Medrol and a DuoNeb in the office with a 5-day prednisone taper with some transient improvement within this morning felt too short of breath to get in the shower or ambulate despite using her home nebulizers and presented to the ER for evaluation. At time of bedside evaluation she has diffuse expiratory wheezing in all lung hutton, no rales or rhonchi are appreciated. This is received Solu- Medrol and a second DuoNeb shortly prior to assessment. Work of breathing previously with respiratory rate in the 30s, improved to the low 20s at time of assessment. SpO2 fluctuating 87-93% with desaturation during conversation while at bedside. Agree with admission for acute on chronic COPD exacerbation and PT/OT consultation. Home Brezitri (ICS/Anti-chol/LABA) --> Breo + Incrusewhile inpatient, will continue steroids 40 mg 3 times daily with pulmonary toilet. Patient's QT is normal, 3-day course of azithromycin ordered for exacerbation. Bio fire is pending. VBG 7.4 //, chronic metabolic alkalosis with slight acute alkalosis with tachypnea. BiPAP not required at time of admission; if PPV is used for worsening or workup caution to adjust MV to prevent progressive respiratory alkalosis and will trend VBG hourly x 2 before spacing out to ensure stable. Otherwise agree with assessment and management above PG Care Time/CCT Total # of Minutes Spent Total Time Spent with Patient: Total time spent is greater than 50% in coordination of care (as documented) at patient's floor/unit and/or counseling patient: C[place] [address] INT INP/OBS CARE 3/75MIN Patient Type Established Medical Decision Making High Complexity Diagnoses Acute exacerbation of chronic obstructive pulmonary disease (COPD) J44.1 Nocturnal hypoxemia G47.34 Depression F32.A Hyperlipidemia E78.5 GERD (gastroesophageal reflux disease) K21.9
--- NOTE | 2023-11-24 14:50 | Emergency Department Note ---
History of Present Illness General Chief complaint: Shortness of Breath/Dyspnea Stated complaint: COPD - CANNOT BREATHE Time Seen by Provider: 11/24/23 11:12 History of Present Illness NAME: RAFAEL KAMARA AGE: 77 SEX: F : 1945 ARRIVES VIA: Walk-In INFORMANT: Patient ED PROVIDER(S): DAVID Alfaro, Ramirez Neves, The patient is a 77-year-old female who arrives to the emergency department for significant shortness of breath. She was recently discharged from the hospital for a COPD exacerbation at the end of October. She reports she received IV antibiotics during her stay as well as a course of steroids after discharge. The patient states her shortness of breath has been worsening over the last few days, she denies fever, she denies chest pain. She states she uses Breztri, twice daily as well as nebulizer treatments and a rescue inhaler. She reports none of these treatments have been assisting with her shortness of breath. She denies use of home oxygen. Upon arrival she is significantly tachypneic or oxygenating in the mid 90s, and afebrile. Home Medications Medication Instructions Recorded Confirmed Type cholecalciferol (vitamin D3) 50 50 mcg PO QAM 09/24/19 11/24/23 History mcg (2,000 unit) capsule (Vitamin D3) cetirizine 5 mg-pseudoephedrine ER 1 tab PO Q12H PRN allergy symptoms 08/05/22 11/24/23 Rx 120 mg tablet,extended #60 tabs release,12hr (Allergy Relief-D (cetirizine)) multivitamin 1 tab PO QAM 08/20/22 11/24/23 History albuterol sulfate 90 mcg/actuation 2 inh inhalation QID PRN shortness 03/14/23 11/24/23 Rx aerosol inhaler of breath or wheezing #8.5 grams montelukast 10 mg tablet 10 mg PO DAILY #90 tabs 06/06/23 11/24/23 Rx (Singulair) simvastatin 20 mg tablet 10 mg (1/2 x 20 mg) PO QAM #90 tabs 08/26/23 11/24/23 Rx budesonide 160 mcg-glycopyr 9 2 inh inhalation DAILY 10/25/23 11/24/23 History mcg-formot 4.8 mcg/actuation HFA inhaler (Breztri Aerosphere) guaifenesin 600 mg tablet, 600 mg PO BID 10/25/23 11/24/23 History extended release 12 hr (Mucinex) ipratropium 0.5 mg-albuterol 3 mg 3 ml inhalation Q6H PRN wheezing 10/25/23 11/24/23 Rx (2.5 mg base)/3 mL nebulization #90 mL soln vitamins A,C,X-ngyl-wdwutb 4,296 1 cap PO BID 10/25/23 11/24/23 History mcg-226 mg-90 mg capsule (PreserVision AREDS) sodium chloride 7 % for 4 ml NEB BIDR #120 mL 11/05/23 11/24/23 Rx nebulization escitalopram oxalate 10 mg tablet 10 mg PO QAM #90 tabs 11/16/23 11/24/23 Rx hydroxyzine HCl 25 mg tablet 25 mg PO HS allergies 11/24/23 11/24/23 History omeprazole 20 mg capsule,delayed 20 mg PO QAM 11/24/23 11/24/23 History release Allergies Allergy/AdvReac Type Severity Reaction Status Date / Time No Known Drug Allergies Allergy Verified 11/16/23 09:23 Past Med/Surg History Medical History (Updated 11/25/23 @ 11:10 by DAVID [place]) GERD (gastroesophageal reflux disease) Nocturnal hypoxemia on 2l O2 at night Osteopenia Prediabetes Mild mitral regurgitation History of tobacco use Acute exacerbation of chronic obstructive pulmonary disease (COPD) Viral illness Pulmonary scarring Mediastinal lymphadenopathy Acute viral bronchitis Hypoxia Pulmonary nodule 1 cm or greater in diameter PET 04/13/2023 with 15mm RUL nodule with no abnormal FDG uptake History of COVID-2020, 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 On home oxygen therapy 2L O2 at night via [place] Hyperlipidemia Asthma-COPD overlap syndrome inh daily and prn, nebulizer prn Osteoarthritis History of skin cancer removed-forehead, nose, and cheek Macular degeneration of both eyes gets injections every 3 months. Anxiety Surgical History (Updated 11/19/23 @ 00:11 by Ida Rene) History of surgery trigger finger release Hx of bilateral cataract extraction Hx of colonoscopy Family History Mother Asthma Heart disease Hypertension Brother Cancer Stroke Bladder cancer Myocardial infarction Sister Hypertension Adverse anesthesia outcome Myocardial infarction Other Alzheimer disease COPD (chronic obstructive pulmonary disease) Diabetes No family history of bleeding disorder Denies family history of Ovarian cancer Prostate cancer Breast cancer Colorectal cancer Social History Smoking Status: Former smoker Tobacco Type: Cigarettes Age Started Using Tobacco: 17; Age Quit Using Tobacco: 54; packs per day: 1; Second Hand Exposure: No; Do You Dip or Chew Tobacco: No; Tobacco Cessation Education Requested by Patient: No Hx Alcohol Use: No Hx Substance Use: No Preferred Language: Guamanian Communication Ability: Effective Visual Impairment: No Limitations Hearing Ability: Normal Solar [employer] Required: No Beliefs That Will Affect Care: None marital status: / Current Living Situation: Alone current occupational status: retired Other Information That Helps Us Care for You: No Feels Safe at Home: Yes Childhood Exposure to Second-Hand Smoke: Yes Dental Care, Regularly: Yes Physical Activity Frequency: Daily Seatbelt Use: always Sunscreen Use: Yes Assistive Devices: None Physical Exam Vital Signs Vital Signs - 24 hr 11/24/23 11:20 11/24/23 11:38 11/24/23 11:40 Pulse Rate 83 84 Pulse Rate [Apical] Pulse Rate from SpO2 Sensor 84 83 Respiratory Rate 24 20 Blood Pressure Blood Pressure Mean Pulse Oximetry 94 96 98 Oxygen Delivery Method Room Air 11/24/23 11:50 11/24/23 11:57 11/24/23 12:00 Pulse Rate 82 84 Pulse Rate [Apical] 83 Pulse Rate from SpO2 Sensor 83 84 Respiratory Rate 20 19 17 Blood Pressure Blood Pressure Mean Pulse Oximetry 95 92 91 Oxygen Delivery Method Room Air 11/24/23 12:03 11/24/23 12:10 11/24/23 12:20 Pulse Rate 82 80 81 Pulse Rate [Apical] Pulse Rate from SpO2 Sensor 80 80 Respiratory Rate 19 18 Blood Pressure Blood Pressure Mean Pulse Oximetry 92 87 L Oxygen Delivery Method 11/24/23 12:30 11/24/23 12:34 11/24/23 12:40 Pulse Rate 84 81 Pulse Rate [Apical] Pulse Rate from SpO2 Sensor 84 81 Respiratory Rate 23 26 H 17 Blood Pressure Blood Pressure Mean Pulse Oximetry 95 93 Oxygen Delivery Method 11/24/23 12:41 11/24/23 12:41 11/24/23 12:50 Pulse Rate 78 74 Pulse Rate [Apical] Pulse Rate from SpO2 Sensor 79 75 Respiratory Rate 23 16 Blood Pressure 125/77 Blood Pressure Mean 94 Pulse Oximetry 94 98 Oxygen Delivery Method 11/24/23 13:00 11/24/23 13:10 Pulse Rate 83 Pulse Rate [Apical] Pulse Rate from SpO2 Sensor 89 Respiratory Rate 18 Blood Pressure Blood Pressure Mean Pulse Oximetry 94 Oxygen Delivery Method VITALS: Vitals are noted on the nurse's note and reviewed by myself. Vital signs stable. GENERAL: This is a 77-year-old female in no mild distress, nondiaphoretic, well- developed well-nourished. SKIN: The skin was without rashes, erythema, edema, or bruising. HEAD: Normocephalic atraumatic. EARS: External auditory canals clear, tympanic membranes pearly barger without erythema or effusion bilaterally. MOUTH: Mucous membranes moist. Tonsils are not enlarged. Pharynx without erythema or exudate. Uvula midline. Airway patent. Tongue does not deviate. NECK: Supple without nuchal rigidity. No lymphadenopathy. No thyromegaly. Cervical spine is nontender. No JVD. HEART: Regular rate and rhythm without murmurs gallops or rubs. LUNGS: Wheezing throughout, expiratory. Diminished breath sounds right upper lobe. ABDOMEN: Positive bowel sounds x 4. Normal tympanic percussion. Soft, nontender, without masses or organomegaly. Molina sign negative. No guarding or rebound tenderness. MUSCULOSKELETAL: No muscle atrophy, erythema, or edema noted. Full range of motion without joint tenderness in all extremities. No tenderness to palpation. Normal gait. Strength 5/5 throughout. NEURO: Patient was alert and oriented to person place and time. Normal sensation to light and sharp touch. Deep tendon reflexes 2+ throughout. No focal neurological deficits. This is a 77-year-old female Course Administered Medications Albuterol (Albut/Ipratrop 3mg/0.5mg Neb 3 Ml Vial) 3 ml NEB QIDR [facility]; Protocol Stop: 12/24/23 16:39 Last Admin: 11/25/23 07:00 Dose: 3 ml Documented By: KMGuillermo Admin: 11/24/23 19:44 Dose: 3 ml Documented By: Admin: 11/24/23 17:24 Dose: Not Given Documented By: [facility] Enoxaparin Sodium (Enoxaparin Inj 40 Mg/0.4 Ml Syr) 40 mg SQ Q24H CARMEN Stop: 12/24/23 18:59 Last Admin: 11/24/23 18:04 Dose: 40 mg Documented By: NISH Escitalopram Oxalate (Escitalopram Oxalate 10 Mg Tab) 10 mg PO QAM CARMEN Stop: 12/25/23 08:59 Last Admin: 11/25/23 09:38 Dose: 10 mg Documented By: ZACK Fluticasone Furoate (Fluticasone Furoate 200mcg 14 Puffs/Inhaler) 1 puffs INH DAILY CARMEN Stop: 12/25/23 08:59 Last Admin: 11/25/23 09:38 Dose: 1 puffs Documented By: ZACK Guaifenesin (Guaifenesin 600 Mg Tabcr) 600 mg PO BID CARMEN Stop: 12/24/23 20:59 Last Admin: 11/25/23 09:38 Dose: 600 mg Documented By: Admin: 11/24/23 20:15 Dose: 600 mg Documented By: LOKI Hydroxyzine HCl (Hydroxyzine Hcl 25 Mg Tab) 25 mg PO HS CARMEN Stop: 12/24/23 20:59 Last Admin: 11/24/23 20:15 Dose: 25 mg Documented By: LOKI Azithromycin 500 mg/ Dextrose 255 mls @ 125 mls/hr IV Q24H CARMEN Stop: 11/27/23 17:59 Last Infusion: 11/24/23 19:46 Dose: Infused Documented By: Admin: 11/24/23 17:43 Dose: 125 mls/hr Documented By: NISH Methylprednisolone 40 mg/ (Syringe) 0.64 mls @ 1.5 mls/min IV Q8H CARMEN Stop: 12/25/23 08:59 Last Admin: 11/25/23 09:38 Dose: 1.5 mls/min Documented By: ZACK Montelukast Sodium (Montelukast Sodium 10 Mg Tablet) 10 mg PO DAILY CARMEN Stop: 12/25/23 08:59 Last Admin: 11/25/23 09:38 Dose: 10 mg Documented By: ZACK Pantoprazole Sodium (Pantoprazole 40 Mg Tab) 40 mg PO QAM CARMEN Stop: 12/25/23 08:59 Last Admin: 11/25/23 09:38 Dose: 40 mg Documented By: MM Simvastatin (Simvastatin 10 Mg Tab) 10 mg PO QAM CARMEN Stop: 12/25/23 08:59 Last Admin: 11/25/23 09:38 Dose: 10 mg Documented By: MM Sodium Chloride (Sodium Chlor 7% 4 Ml Neb) 4 ml NEB BIDR CARMEN Stop: 12/24/23 18:59 Last Admin: 11/25/23 07:00 Dose: 4 ml Documented By: Admin: 11/24/23 19:44 Dose: 4 ml Documented By: EML Umeclidinium/Vilanterol (Umeclidinium/Vilanterol 62.5/25mcg 7 Puffs/Inhaler) 1 puffs INH DAILY CARMEN Stop: 12/25/23 08:59 Last Admin: 11/25/23 09:39 Dose: 1 puffs Documented By: MM Discontinued Medications Albuterol (Albut/Ipratrop 3mg/0.5mg Neb 3 Ml Vial) 3 ml INH NOW STA Stop: 11/24/23 11:21 Last Admin: 11/24/23 11:33 Dose: 3 ml Documented By: ACC Albuterol (Albut/Ipratrop 3mg/0.5mg Neb 3 Ml Vial) 3 ml NEB NOW STA; Protocol Stop: 11/24/23 12:35 Last Admin: 11/24/23 12:43 Dose: 3 ml Documented By: ACC Methylprednisolone (Methylprednisolone 125 Mg/2 Ml Vial) 125 mg IV NOW STA Stop: 11/24/23 11:21 Last Admin: 11/24/23 11:36 Dose: 125 mg Documented By: ACC Medical Decision Making Differential Diagnosis Reactive airway disease, pneumonia, pneumothorax, COPD, CHF, infections, cardiac ischemia, pulmonary embolism, musculoskeletal, gastrointestinal, as well as other pathologies. Medical Records Attestation: I reviewed the patient's medical records. Home Medications Current Medication List: was personally reviewed by me Laboratory Data Attestation: I reviewed the patient's lab results. No leukocytosis, stable hemoglobin and hematocrit, no electrolyte abnormalities. Negative troponin. 11/25/23 06:38 11/25/23 06:38 Lab Results 11/24/23 11/24/23 Range/Units 11:40 11:50 WBC 6.93 (4.8-10.8) K/ul RBC 4.31 (4.20-5.40) M/uL Hgb 12.7 (12.0-16.0) g/dl Hct 37.6 (37.0-47.0) % MCV 87.2 (80.0-100.0) fL MCH 29.5 (25.0-34.0) pg MCHC 33.8 (32.0-36.0) g/dL RDW Std Deviation 43.6 (36.4-46.3) fL RDW Coeff of [place] 13.6 (11.5-14.5) % Plt Count 161 (130-400) K/uL MPV 8.8 L (9.4-12.4) fL Immature Gran % (Auto) 0.3 % Neut % (Auto) 58.1 % Lymph % (Auto) 26.3 % [place] % (Auto) 11.0 % Eos % (Auto) 4.0 % Baso % (Auto) 0.3 % Neut # (Auto) 4.03 (1.40-6.50) K/uL Lymph # (Auto) 1.82 (1.20-3.40) K/uL [place] # (Auto) 0.76 H (0.11-0.59) K/uL Eos # (Auto) 0.28 (0.00-0.50) K/uL Baso # (Auto) 0.02 (0.00-0.20) K/uL Immature Gran # (Auto) 0.02 (0.01-0.20) K/uL VBG pH 7.46 H (7.36-7.41) VBG pCO2 40 (38-50) mmHg VBG pO2 46 mmHg VBG HCO3 28 mmol/L VBG O2 Saturation 78.2 % VBG Base Excess 4.2 mEq/L Sodium 140 (136-145) mmol/L Potassium 4.3 (3.5-5.1) mmol/L Chloride 106 (98-107) mmol/L Carbon Dioxide 28 (21-32) mmol/L Anion Gap 6 (3-11) BUN 15 (6-23) mg/dl Creatinine 0.87 (0.6-1.2) mg/dl Est Cr Clr Drug Dosing Not Reportable Est GFR ( Amer) 74.5 ml/min Est GFR (Non-Af Amer) 64.3 ml/min BUN/Creatinine Ratio 17.2 (10-20) Glucose 98 (70-99(Fasting)) mg/dl Calcium 8.9 (8.6-10.3) mg/dl Magnesium 2.3 (1.7-2.4) mg/dl Total Bilirubin 0.5 (0.2-1.0) mg/dl AST 22 (13-39) U/L ALT 20 (7-52) U/L Alkaline Phosphatase 69 (34-104) U/L Troponin I High Sens 5.2 (0-14) pg/ml Total Protein 6.5 (6.0-8.3) gm/dl Albumin 3.6 (3.4-5.0) gm/dl Globulin 2.9 (2.5-4.0) gm/dl Albumin/Globulin Ratio 1.2 (0.9-2) Procalcitonin < 0.05 (0-0.5) ng/ml TSH 1.315 (0.300-4.500) uIu/ml Imaging Data Radiologist's Impression: Chest X-Ray 11/24/23 11:20 SINGLE VIEW CHEST CLINICAL HISTORY: Dyspnea FINDINGS: An AP, portable, upright chest radiograph is compared to chest x-ray and chest CT dated 11/02/2023. The cardiomediastinal silhouette is unremarkable noting atherosclerotic calcification of the thoracic aorta. Emphysema and chronic interstitial thickening is similar to previous. There is bibasilar scarring/atelectasis. No airspace consolidation or pleural effusion is identified. No pneumothorax is seen. The skeletal structures are osteopenic. The bony thorax is grossly intact. IMPRESSION: Emphysematous change with no active disease in the chest. ACT 112: Negative or not required by law. Electronically signed by: Luis Gardiner M.D. 11/24/2023 11:55 AM ECG Data Attestation: I personally reviewed and interpreted this ECG as follows: Indication: + SOB/dyspnea Rate (beats per minute): 84 Rhythm: + sinus rhythm ECG Godley: + Normal Comparison ECG Date: from (10/2023) Change: the following changes noted Additional Comments: Nonspecific T wave abnormality no longer present. Blood Pressure Blood Pressure Findings: Normal blood pressure MDM Narrative Patient is a 89-nsqy-[age]-year-old female who arrives to the emergency department for the above-stated complaint. Upon examination the patient is tachypneic at a rate of 30, however her oxygenation sat on room air is at 94%. She has wheezing throughout, expiratory. She has an increased work of breathing and appears to be in a COPD exacerbation. Saline lock obtained along with basic labs including a CBC, CMP, troponin. EKG was obtained which showed normal sinus rhythm at a rate of 83. Chest x-ray was obtained which showed no pneumonia, however emphysematous changes. Patient was provided with DuoNeb treatments, as well as IV steroids. Her work of breathing did not improve during that time, and considered BiPAP to assist with work of breathing or chose not to after speaking with Dr. Neves who recommended consulting the admitting team. I discussed the case with Dr. Goodman who agreed the patient for admission. At this time the [facility] admitting team will take over care of the patient, and admit for COPD exacerbation. The patient's case was discussed with Dr. Neves, who agreed with my evaluation and treatment plan. Continuous bus driver/monitor: Order was placed for continuous bus driver/monitor. Patient was placed on the bus driver/monitor. Patient was noted to be in normal sinus rhythm at an initial rate of 83 bpm. Impression & Plan Acute exacerbation of chronic obstructive pulmonary disease (COPD) Discharge Plan Visit Data Chief Complaint: Shortness of Breath/Dyspnea Stated Complaint: COPD - CANNOT BREATHE ED Provider: Ramirez Neves ED Midlevel Provider: Aarti Martin Discharge Problem: Acute exacerbation of chronic obstructive pulmonary disease (COPD) Patient Disposition: Admitted As Inpatient Discharge Instructions Interventions: ED Discharge Assessment Last Done: 11/24/23 16:31
[2023-11-24 15:05] LABS: Thyroid Stimulating Hormone 1.315 uIu/ml (0.300-4.500)
[2023-11-24 15:05] LABS: Adenovirus PCR Not Detected (NotDetected); Bordetella parapertussis PCR Not Detected (NotDetected); Bordetella pertussis PCR Not Detected (NotDetected); Chlamydia pneumoniae PCR Not Detected (NotDetected); Coronavirus 229E PCR Not Detected (NotDetected); Coronavirus CoV-2 (COVID19)PCR Not Detected (NotDetected); Coronavirus HKU1 PCR Not Detected (NotDetected); Coronavirus NL63 PCR Not Detected (NotDetected); Coronavirus OC43PCR Not Detected (NotDetected); Human Metapneumovirus PCR Not Detected (NotDetected); Influenza A PCR Not Detected (NotDetected); Influenza B PCR Not Detected (NotDetected); Mycoplasma pneumoniae PCR Not Detected (NotDetected); Parainfluenza Virus 1 PCR Not Detected (NotDetected); Parainfluenza Virus 2 PCR Not Detected (NotDetected); Parainfluenza Virus 3 PCR Not Detected (NotDetected); Parainfluenza Virus 4 PCR Not Detected (NotDetected); Respiratory Syncytial VirusPCR Not Detected (NotDetected); Rhinovirus/Enterovirus PCR Not Detected (NotDetected)
[2023-11-24] MEDS ORDERED: ACETAMINOPHEN 325 MG TAB PO PRN (16:40)
[2023-11-24] MEDS ORDERED: ONDANSETRON INJ 2 MG/ML 2 ML VIAL IV PRN (16:40)
[2023-11-24] MEDS: ALBUT/IPRATROP 3MG/0.5MG NEB 3 ML VIAL NEB SCH ×2 (17:24→19:44)
[2023-11-24] MEDS: AZITHROMYCIN 500 MG in DEXTROSE 5% 250 ML IV SCH (17:43)
[2023-11-24] MEDS: ENOXAPARIN INJ 40 MG/0.4 ML SYR SQ SCH (18:04)
--- NOTE | 2023-11-24 19:39 | XCELERA ---
[id number]
[2023-11-24] MEDS: SODIUM CHLOR 7% 4 ML NEB NEB SCH (19:44)
[2023-11-24] MEDS: guaiFENesin 600 MG TABCR PO SCH (20:15)
[2023-11-24] MEDS: hydrOXYzine HCl 25 MG TAB PO SCH (20:15)
[2023-11-25 02:31] LABS: Appearance Urine Clear (Clear); Bacteria Urine Automated Negative (Negative); Bilirubin Urine Negative (Negative); Blood Urine Negative (Negative); Cast Urine Automated 0 /lpf (0-5); Color Urine Yellow; Glucose Urine UA 1+ (Negative); Ketones Urine Trace (Negative); Leukocyte Esterase Urine Trace (Negative); Nitrite Urine Negative (Negative); Protein Urine Negative (Negative); RBC Urine Automated 0-4 /hpf (0-4); Specific Gravity Urine 1.019 (1.000-1.030); Urobilinogen Urine Negative (Negative); pH Urine 7.5 (4.5-7.5)
[2023-11-25] MEDS: ALBUT/IPRATROP 3MG/0.5MG NEB 3 ML VIAL NEB SCH ×4 (07:00→19:30)
[2023-11-25] MEDS: SODIUM CHLOR 7% 4 ML NEB NEB SCH ×2 (07:00→19:31)
[2023-11-25 07:32] LABS: Basophils # (auto) 0.01 K/uL (0.00-0.20); Basophils % (auto) 0.1 %; Hematocrit (blood only) 34.9 % (37.0-47.0); Hemoglobin 11.7 g/dl (12.0-16.0); Immature Granulocytes # (auto) 0.04 K/uL (0.01-0.20); Immature Granulocytes % (auto) 0.5 %; Lymphocytes # (auto) 1.35 K/uL (1.20-3.40); Lymphocytes % (auto) 16.9 %; Mean Corpuscular Hgb Conc 33.5 g/dL (32.0-36.0); Mean Corpuscular Volume 86.6 fL (80.0-100.0); Mean Platelet Volume 9.1 fL (9.4-12.4); Monocytes # (auto) 0.74 K/uL (0.11-0.59); Monocytes % (auto) 9.3 %; Neutrophils # (auto) 5.83 K/uL (1.40-6.50); Neutrophils % (auto) 73.2 %; Platelet Count 173 K/uL (130-400); RDW Coefficient of Variation 13.3 % (11.5-14.5); RDW Standard Deviation 41.7 fL (36.4-46.3); Red Blood Count 4.03 M/uL (4.20-5.40); White Blood Count 7.97 K/ul (4.8-10.8)
--- NOTE | 2023-11-25 07:33 | Hospitalist Progress Note ---
Date of Service November 25, 2023 Assessment & Plan (1) Acute exacerbation of chronic obstructive pulmonary disease (COPD): Plan: Worsening SOB and productive cough x 2mo CXR revealed emphysematous change with no active disease in the chest Echocardiogram normal EF, no RWMA, no sig valvular changes BioFire negative although no pneumonia will use azithromycin for anti-inflammatory affects and treat bronchitis Pt with abnormal Chest CT in 10/29, recommend follow up for resolution, with wt loss will Ct Chest Abdomen and pelvis DuoNeb QIDR, Solu-Medrol 40 mg IV TID Incentive spirometry Flutter valve QID Continue hypertonic 7% nebulizers BIDR Guaifenesin 600 mg p.o. q12h for cough BiPAP as needed Typically needs nocturnal oxygen (2) Depression: Plan: Continue escitalopram (3) Hyperlipidemia: Plan: Continue simvastatin (4) GERD (gastroesophageal reflux disease): Plan: Continue omeprazole, or pantoprazole equivalent Plan Full code DVT PPx: Lovenox 40mg SQ q24h Admission and Anticipated Discharge Date Admission Date: November 24, 2023 Subjective pt states she is about 50% compared to her usually well baseline in regard to her breathing non producive cough informs of a 10# unintentional weight loss in last month, has been up to date with mammogram and colon screening according to chart Physical Exam Physical Exam: pt is tachypneic, wheezing small short breaths no focal loss cardiac is regular abd is soft no masses normal bowel sounds Results & Data Results & Data Vital Signs (Past 12 Hours) Vital Signs Temp Pulse Pulse Pulse Resp BP Pulse Ox 11/25/23 07:00 79 18 95 11/25/23 03:09 98.1 F 75 20 112/63 94 11/25/23 00:14 77 11/24/23 23:36 98.4 F 99 H 20 93/50 L 93 11/24/23 21:57 85 11/24/23 20:30 11/24/23 20:10 98.2 F 98 H 20 109/62 92 11/24/23 19:45 100 H 18 93 O2 Del Method 11/25/23 07:00 Room Air 11/25/23 03:09 Room Air 11/25/23 00:14 11/24/23 23:36 Room Air 11/24/23 21:57 11/24/23 20:30 Room Air 11/24/23 20:10 Room Air 11/24/23 19:45 Room Air Laboratory Results review cbc review prp PG Care Time/CCT Total # of Minutes Spent Total Time Spent with Patient: Total time spent is greater than 50% in coordination of care (as documented) at patient's floor/unit and/or counseling patient: Coding Level of Care Code 72908 SUB INP/OBS CARE 3/50MIN Diagnoses Acute exacerbation of chronic obstructive pulmonary disease (COPD) J44.1 Depression F32.A Hyperlipidemia E78.5 GERD (gastroesophageal reflux disease) K21.9
[2023-11-25 08:02] LABS: BUN Creatinine Ratio 22.6 (10-20); Calcium 8.7 mg/dl (8.6-10.3); Creatinine Clr Calc Pharmacy 45.6 ml/min; Est GFR (African American) 68.7 ml/min; Est GFR (Non-African American) 59.3 ml/min; Potassium 3.8 mmol/L (3.5-5.1)
[2023-11-25] MEDS ORDERED: NON-FORMULARY MEDICATION (Budesonide-Glycopyr-Formoterol [Breztri Aerosphere] 160-9-4.8 mc INH SCH (09:00)
[2023-11-25] MEDS: MONTELUKAST SODIUM 10 MG TABLET PO SCH (09:38)
[2023-11-25] MEDS: methylPREDNISolone 40 MG in SYRINGE 0 ML IV SCH ×2 (09:38→18:07)
[2023-11-25] MEDS: ESCITALOPRAM OXALATE 10 MG TAB PO SCH (09:38)
[2023-11-25] MEDS: SIMVASTATIN 10 MG TAB PO SCH (09:38)
[2023-11-25] MEDS: FLUTICASONE FUROATE 200MCG 14 PUFFS/INHALER INH SCH (09:38)
[2023-11-25] MEDS: PANTOprazole 40 MG TAB PO SCH (09:38)
[2023-11-25] MEDS: guaiFENesin 600 MG TABCR PO SCH ×2 (09:38→20:55)
[2023-11-25] MEDS: UMECLIDINIUM/VILANTEROL 62.5/25MCG 7 PUFFS/INHALER INH SCH (09:39)
--- NOTE | 2023-11-25 16:55 | CT Scan Report ---
ABDOMEN AND PELVIS CT WITH ORAL CONTRAST CT DOSE: HISTORY: unexplained weight loss TECHNIQUE: Multiaxial CT images of the abdomen and pelvis were performed following the use of oral co ntrast. A dose lowering technique was utilized adhering to the principles of ALARA. COMPARISON STUDY: Abdomen and pelvis CT 05/17/2018. FINDINGS: The lung bases will be reported on the same day chest CT. No pneumoperitoneum. No pneumatos is. No acute fractures identified. No suspicious lytic or blastic osseous lesions. Mild levoscoliosis within the lumbar spine. The unenhanced liver, gallbladder, pancreas, adrenal glands, and kidneys ar e unremarkable. There is a punctate calcified granuloma within the spleen. No renal or ureteral stone s. No hydronephrosis. There is a left retroaortic renal vein. No retroperitoneal or pelvic lymphadeno anastacia. Moderate calcified plaque within the normal caliber abdominal aorta. No pelvic free fluid. The bladder is mildly distended. No bladder wall thickening. The uterus and adnexa are unremarkable. No bowel wall thickening or obstruction. IMPRESSION: 1. No bowel wall thickening or obstruction. 2. No renal or ureteral stones. No hydronephrosis. 3. The bladder is mildly distended. 4. The lung bases will be reported on the same day chest CT. ACT 112: Negative or not required by law. Electronically signed by: Santhosh Tan M.D. 11/25/2023 4:53 PM
--- NOTE | 2023-11-25 17:09 | CT Scan Report ---
CT chest diagnostic wo con CT DOSE: 1442.82 mGy.cm CLINICAL HISTORY: 77 years-old Female with wt loss follow up from october. Acute weight loss. TECHNIQUE: Multiaxial CT images of the chest were performed without contrast. A dose lowering techni que was utilized adhering to the principles of ALARA. COMPARISON: CT abdomen and pelvis of same day, CTA chest 11/02/2023. FINDINGS: Unremarkable thyroid. No lymphadenopathy. Heart is normal in size without pericardial effusion. Moder ate to extensive coronary artery calcifications. Atherosclerosis of the thoracic aorta without aneury sm. No pneumothorax, pleural effusion or overt pulmonary edema. Right apical pleural parenchymal scarring . Mild pulmonary emphysema with areas of mild subpleural fibrosis and atelectasis. Bronchial wall thi ckening with mild right basilar predominant mucous plugging. There are a few tiny tree-in-bud nodules in the right lung base measuring 1-2 mm which are likely infectious or inflammatory. No suspicious p ulmonary nodules or masses. Tiny left Bochdalek hernia. No acute upper abdominal abnormality. Soft tissues are within normal limits. No acute fracture. No de structive bone lesions. IMPRESSION: 1. Emphysema with near complete resolution of the previously described tree-in-bud nodules compatible with resolving infectious or inflammatory bronchiolitis. 2. Mild bronchitis with decreased mucous plugging. 3. No pleural effusion or lymphadenopathy. ACT 112: Negative or not required by law. Dictated: 11/25/2023 4:47 PM Transcribed: 11/25/2023 5:01 PM Eran [id number] [id number] Electronically signed by: Chung Hankins M.D. 11/25/2023 5:08 PM
[2023-11-25] MEDS: AZITHROMYCIN 500 MG in DEXTROSE 5% 250 ML IV SCH (18:07)
[2023-11-25] MEDS: ENOXAPARIN INJ 40 MG/0.4 ML SYR SQ SCH (20:54)
[2023-11-25] MEDS: hydrOXYzine HCl 25 MG TAB PO SCH (20:55)
[2023-11-26] MEDS: methylPREDNISolone 40 MG in SYRINGE 0 ML IV SCH ×3 (02:33→17:30)
--- NOTE | 2023-11-26 05:54 | Electrocardiogram Report ---
Test Reason : Blood Pressure : / mmHG Vent. Rate : 084 BPM Atrial Rate : 084 BPM P-R Int : 128 ms QRS Dur : 070 ms QT Int : 338 ms P-R-T Axes : 073 051 064 degrees QTc Int : 399 ms Normal sinus rhythm Nonspecific ST abnormality Abnormal ECG When compared with ECG of 02-NOV-2023 12:09, No significant change Confirmed by Fan Cortes ([id number]) on 11/26/2023 5:54:31 AM Referred By: REFERRED SELF Confirmed By:Fan Cortes
[2023-11-26] MEDS: SODIUM CHLOR 7% 4 ML NEB NEB SCH (07:44)
[2023-11-26] MEDS: ALBUT/IPRATROP 3MG/0.5MG NEB 3 ML VIAL NEB SCH ×4 (07:44→19:16)
[2023-11-26] MEDS: UMECLIDINIUM/VILANTEROL 62.5/25MCG 7 PUFFS/INHALER INH SCH (09:29)
[2023-11-26] MEDS: MONTELUKAST SODIUM 10 MG TABLET PO SCH (09:30)
[2023-11-26] MEDS: guaiFENesin 600 MG TABCR PO SCH ×2 (09:30→20:54)
[2023-11-26] MEDS: ESCITALOPRAM OXALATE 10 MG TAB PO SCH (09:30)
[2023-11-26] MEDS: FLUTICASONE FUROATE 200MCG 14 PUFFS/INHALER INH SCH (09:30)
[2023-11-26] MEDS: SIMVASTATIN 10 MG TAB PO SCH (09:30)
[2023-11-26] MEDS: PANTOprazole 40 MG TAB PO SCH (09:31)
[2023-11-26 10:35] LABS: Basophils # (auto) 0.01 K/uL (0.00-0.20); Basophils % (auto) 0.1 %; Hematocrit (blood only) 36.7 % (37.0-47.0); Hemoglobin 12.1 g/dl (12.0-16.0); Immature Granulocytes % (auto) 0.9 %; Lymphocytes # (auto) 1.21 K/uL (1.20-3.40); Lymphocytes % (auto) 11.4 %; Mean Corpuscular Hemoglobin 28.9 pg (25.0-34.0); Mean Corpuscular Volume 87.6 fL (80.0-100.0); Monocytes # (auto) 0.59 K/uL (0.11-0.59); Monocytes % (auto) 5.6 %; Platelet Count 183 K/uL (130-400); RDW Coefficient of Variation 13.6 % (11.5-14.5); RDW Standard Deviation 43.6 fL (36.4-46.3); Red Blood Count 4.19 M/uL (4.20-5.40); White Blood Count 10.61 K/ul (4.8-10.8)
[2023-11-26 10:47] LABS: BUN Creatinine Ratio 25.3 (10-20); Calcium 9.3 mg/dl (8.6-10.3); Creatinine Clr Calc Pharmacy 46.6 ml/min; Est GFR (African American) 70.5 ml/min; Est GFR (Non-African American) 60.9 ml/min; Potassium 3.9 mmol/L (3.5-5.1)
[2023-11-26] MEDS ORDERED: BUDESONIDE 0.5 MG/2 ML VIAL (PULMICORT) NEB STA (13:18)
[2023-11-26] MEDS ORDERED: FORMOTEROL 20 MCG/2 ML VIAL NEB STA (13:18)
--- NOTE | 2023-11-26 14:58 | Pulmonary Consultation ---
Date of Consultation November 26, 2023 Assessment & Plan (1) Asthma-COPD overlap syndrome: She has had a protracted illness since COVID-19 in August 2023. She had tree-in-bud opacities noted on the CT chest from October which have resolved on the more recent CT chest from yesterday. She has mild to moderate emphysema noted on her CT chest. Her handheld spirometry in the office on the revealed a significantly decreased FEV1 of 22% predicted. I think to some degree and she has subacute COPD symptoms which have not yet completely resolved since her protracted exacerbation, however, I do think she may potentially have a new baseline. We could repeat full PFTs on her as an outpatient to see if she has significant air trapping which would potentially qualify her for bronchoscopic lung volume reduction. She does not have a significant eosinophilia or clear evidence of Th2 mediated asthma and thus I do not think biologic therapy would be of significant benefit. We can check alpha-1 antitrypsin levels and genotype as an outpatient to see if she would be a candidate for alpha-1 antitrypsin therapy. Otherwise, I think she is safe for discharge home with her home ICS/LAMA/LAMA combo inhaler twice daily and supplemental oxygen. Recommend for an additional 5 days of prednisone at a dose of 30 mg daily. Will follow-up with her in the outpatient clinic. History of Present Illness Reason for Consultation: COPD Attending Physician: Austin Jackson MD History of Present Illness 77-year-old female with a past medical history of COPD well-known to me from the pulmonary clinic who presented to the hospital due to her ongoing severe shortness of breath. I actually saw the patient November 16 in the outpatient setting and she was prescribed prednisone at that time. She was encouraged to go to the ER by her family due to concerns of increased work of breathing and shortness of breath. She had COVID-19 back in August 2023 and she has not fully recovered since this illness. On her last spirometry in the office her FEV1 was 22% of predicted. Her absolute eosinophil counts have not been significantly elevated. Her NIOX values have been relatively normal. She is on a combination ICS/LAMA/LAMA MDI inhaler twice daily at home. She does have supplemental oxygen at home which she uses at night. During this hospitalization she has not noticed significant improvement of her symptoms. She actually indicates however that her breathing is better now than it was when she was in outpatient after her visit with me on the . I did walk her up and down the hallways today while on room air. Her oxygen saturations dropped to 91% and her heart rate increased to 110. She endorsed some moderate roxane rtness of breath with ambulation. Allergies Allergy/AdvReac Type Severity Reaction Status Date / Time No Known Drug Allergies Allergy Verified 11/16/23 09:23 Home Medications Medication Instructions Recorded Confirmed Type cholecalciferol (vitamin D3) 50 50 mcg PO QAM 09/24/19 11/24/23 History mcg (2,000 unit) capsule (Vitamin D3) cetirizine 5 mg-pseudoephedrine ER 1 tab PO Q12H PRN allergy symptoms 08/05/22 11/24/23 Rx 120 mg tablet,extended #60 tabs release,12hr (Allergy Relief-D (cetirizine)) multivitamin 1 tab PO QAM 08/20/22 11/24/23 History albuterol sulfate 90 mcg/actuation 2 inh inhalation QID PRN shortness 03/14/23 11/24/23 Rx aerosol inhaler of breath or wheezing #8.5 grams montelukast 10 mg tablet 10 mg PO DAILY #90 tabs 06/06/23 11/24/23 Rx (Singulair) simvastatin 20 mg tablet 10 mg (1/2 x 20 mg) PO QAM #90 tabs 08/26/23 11/24/23 Rx budesonide 160 mcg-glycopyr 9 2 inh inhalation DAILY 10/25/23 11/24/23 History mcg-formot 4.8 mcg/actuation HFA inhaler (Breztri Aerosphere) guaifenesin 600 mg tablet, 600 mg PO BID 10/25/23 11/24/23 History extended release 12 hr (Mucinex) ipratropium 0.5 mg-albuterol 3 mg 3 ml inhalation Q6H PRN wheezing 10/25/23 11/24/23 Rx (2.5 mg base)/3 mL nebulization #90 mL soln vitamins A,C,O-rkkb-lsvzpv 4,296 1 cap PO BID 10/25/23 11/24/23 History mcg-226 mg-90 mg capsule (PreserVision AREDS) sodium chloride 7 % for 4 ml NEB BIDR #120 mL 11/05/23 11/24/23 Rx nebulization escitalopram oxalate 10 mg tablet 10 mg PO QAM #90 tabs 11/16/23 11/24/23 Rx hydroxyzine HCl 25 mg tablet 25 mg PO HS allergies 11/24/23 11/24/23 History omeprazole 20 mg capsule,delayed 20 mg PO QAM 11/24/23 11/24/23 History release Patient History Medical History (Updated 11/25/23 @ 11:10 by DAVID Moctezuma) GERD (gastroesophageal reflux disease) Nocturnal hypoxemia on 2l O2 at night Osteopenia Prediabetes Mild mitral regurgitation History of tobacco use Acute exacerbation of chronic obstructive pulmonary disease (COPD) Viral illness Pulmonary scarring Mediastinal lymphadenopathy Acute viral bronchitis Hypoxia Pulmonary nodule 1 cm or greater in diameter PET 04/13/2023 with 15mm RUL nodule with no abnormal FDG uptake History of COVID-19 2020, 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 On home oxygen therapy 2L O2 at night via [place] Hyperlipidemia Asthma-COPD overlap syndrome inh daily and prn, nebulizer prn Osteoarthritis History of skin cancer removed-forehead, nose, and cheek Macular degeneration of both eyes gets injections every 3 months. Anxiety Surgical History (Updated 11/19/23 @ 00:11 by [facility] Daaisha) History of surgery trigger finger release Hx of bilateral cataract extraction Hx of colonoscopy Family History Mother Asthma Heart disease Hypertension Brother Cancer Stroke Bladder cancer Myocardial infarction Sister Hypertension Adverse anesthesia outcome Myocardial infarction Other Alzheimer disease COPD (chronic obstructive pulmonary disease) Diabetes No family history of bleeding disorder Denies family history of Ovarian cancer Prostate cancer Breast cancer Colorectal cancer Social History Smoking Status: Former smoker Tobacco Type: Cigarettes Age Started Using Tobacco: 17; Age Quit Using Tobacco: 54; packs per day: 1; Second Hand Exposure: No; Do You Dip or Chew Tobacco: No; Tobacco Cessation Education Requested by Patient: No Hx Alcohol Use: No Hx Substance Use: No Preferred Language: Lithuanian Communication Ability: Effective Visual Impairment: No Limitations Hearing Ability: Normal 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 Patient appears fatigued. Eyes: Pupils are equal round and reactive to light. Conjunctivae are normal. Anicteric sclera. Ears nose, mouth and throat: Deferred. Neck: Trachea is midline. Visual inspection is normal. Respiratory: Minimal wheeze with prolonged phase of exhalation. Cardiovascular: Regular rate and rhythm. No murmurs. No edema. Musculoskeletal: No cyanosis. Patient is able to move all extremities. Skin: No rashes, warm dry and intact. Neurologic: No obvious focal neurological deficits seen. Psychiatric: Alert and oriented x3 with a euthymic affect. Results & Data Results & Data Vital Signs (Past 12 Hours) Vital Signs Temp Pulse Pulse Resp BP Pulse Ox O2 Del Method 11/26/23 13:49 98 H 24 92 Room Air 11/26/23 12:00 36.6 C 78 16 141/66 H 99 Room Air 11/26/23 10:49 96 H 20 94 Room Air 11/26/23 07:50 36.5 C 97 H 16 155/79 H 91 Room Air 11/26/23 07:45 101 H 28 H 91 Room Air 11/26/23 07:31 73 11/26/23 04:08 36.4 C L 76 18 130/75 93 Room Air PG Care Time/CCT Total # of Minutes Spent Total Time Spent with Patient: Total time spent is greater than 50% in coordination of care (as documented) at patient's floor/unit and/or counseling patient: Coding Level of Care Code 77090 INT INP/OBS CARE 2/55MIN Diagnoses Asthma-COPD overlap syndrome J44.9
--- NOTE | 2023-11-26 17:03 | Hospitalist Progress Note ---
Date of Service November 26, 2023 Assessment & Plan (1) Acute exacerbation of chronic obstructive pulmonary disease (COPD): Plan: subjective Worsening SOB and productive cough x 2mo CXR revealed emphysematous change with no active disease in the chest Echocardiogram normal EF, no RWMA, no sig valvular changes BioFire negative although no pneumonia will use azithromycin for anti-inflammatory affects and treat bronchitis Pt with abnormal Chest CT in 10/29, recommend follow up for resolution, with wt loss will Ct Chest Abdomen and pelvis DuoNeb QIDR, Solu-Medrol 40 mg IV TID-transition to prednisone on 11/27 Incentive spirometry Flutter valve QID Guaifenesin 600 mg p.o. q12h for cough BiPAP as needed Typically needs nocturnal oxygen consult pulmonary medicine did change to perfromist and formoterol nebs (2) Depression: Plan: Continue escitalopram (3) Hyperlipidemia: Plan: Continue simvastatin (4) GERD (gastroesophageal reflux disease): Plan: Continue omeprazole, or pantoprazole equivalent Plan Full code DVT PPx: Lovenox 40mg SQ q24h Admission and Anticipated Discharge Date Admission Date: November 24, 2023 Subjective pt states she is below the baseline she recalls from last year. She feels that she never recovered from her late fall early winter illness continues with a non producive cough Dr. Watters who is her typical brush material preparer did see the patient he feels that she may benefit from further advanced treatment for COPD but given her significant reduction in FEV1 feels this may be her new baseline Physical Exam Physical Exam: pt is tachypneic, no wheezing continues with small short breaths no focal air loss cardiac is regular abd is soft no masses normal bowel sounds Results & Data Results & Data Vital Signs (Past 12 Hours) Vital Signs Temp Pulse Pulse Resp BP Pulse Ox O2 Del Method 11/26/23 16:36 93 H 11/26/23 16:04 97.7 F 86 18 144/66 H 92 Room Air 11/26/23 13:49 98 H 24 92 Room Air 11/26/23 12:00 97.9 F 78 16 141/66 H 99 Room Air 11/26/23 10:49 96 H 20 94 Room Air 11/26/23 07:50 97.7 F 97 H 16 155/79 H 91 Room Air 11/26/23 07:45 101 H 28 H 91 Room Air 11/26/23 07:31 73 Laboratory Results reviewed cbc reviewed chemistry PG Care Time/CCT Total # of Minutes Spent Total Time Spent with Patient: Total time spent is greater than 50% in coordination of care (as documented) at patient's floor/unit and/or counseling patient: Coding Level of Care Code 92127 SUB INP/OBS CARE 2/35MIN Diagnoses Acute exacerbation of chronic obstructive pulmonary disease (COPD) J44.1 Depression F32.A Hyperlipidemia E78.5 GERD (gastroesophageal reflux disease) K21.9
[2023-11-26] MEDS: BUDESONIDE 0.5 MG/2 ML VIAL (PULMICORT) NEB SCH (19:16)
[2023-11-26] MEDS: FORMOTEROL 20 MCG/2 ML VIAL NEB SCH (19:16)
[2023-11-26] MEDS: hydrOXYzine HCl 25 MG TAB PO SCH (20:54)
[2023-11-26] MEDS: ENOXAPARIN INJ 40 MG/0.4 ML SYR SQ SCH (20:55)
[2023-11-27] MEDS: methylPREDNISolone 40 MG in SYRINGE 0 ML IV SCH (02:51)
[2023-11-27] MEDS: FORMOTEROL 20 MCG/2 ML VIAL NEB SCH (07:08)
[2023-11-27] MEDS: BUDESONIDE 0.5 MG/2 ML VIAL (PULMICORT) NEB SCH (07:08)
[2023-11-27] MEDS: ALBUT/IPRATROP 3MG/0.5MG NEB 3 ML VIAL NEB SCH ×2 (07:08→10:38)
[2023-11-27 07:44] LABS: Basophils # (auto) 0.02 K/uL (0.00-0.20); Basophils % (auto) 0.2 %; Hematocrit (blood only) 36.9 % (37.0-47.0); Hemoglobin 11.9 g/dl (12.0-16.0); Immature Granulocytes # (auto) 0.13 K/uL (0.01-0.20); Lymphocytes # (auto) 1.35 K/uL (1.20-3.40); Lymphocytes % (auto) 10.7 %; Mean Corpuscular Hemoglobin 28.7 pg (25.0-34.0); Mean Corpuscular Hgb Conc 32.2 g/dL (32.0-36.0); Mean Corpuscular Volume 88.9 fL (80.0-100.0); Monocytes % (auto) 5.5 %; Neutrophils # (auto) 10.47 K/uL (1.40-6.50); Neutrophils % (auto) 82.6 %; Platelet Count 193 K/uL (130-400); RDW Coefficient of Variation 13.7 % (11.5-14.5); RDW Standard Deviation 44.8 fL (36.4-46.3); Red Blood Count 4.15 M/uL (4.20-5.40); White Blood Count 12.67 K/ul (4.8-10.8)
[2023-11-27 08:11] LABS: BUN Creatinine Ratio 31.3 (10-20); Calcium 9.5 mg/dl (8.6-10.3); Est GFR (African American) 82.4 ml/min; Est GFR (Non-African American) 71.1 ml/min; Potassium 5.5 mmol/L (3.5-5.1)
[2023-11-27] MEDS ORDERED: AZITHROMYCIN 250 MG TAB PO SCH (09:00)
[2023-11-27] MEDS ORDERED: predniSONE 20 MG TAB PO SCH (09:00)
[2023-11-27] MEDS: guaiFENesin 600 MG TABCR PO SCH (09:42)
[2023-11-27] MEDS: ESCITALOPRAM OXALATE 10 MG TAB PO SCH (09:42)
[2023-11-27] MEDS: PANTOprazole 40 MG TAB PO SCH (09:42)
[2023-11-27] MEDS: SIMVASTATIN 10 MG TAB PO SCH (09:42)
[2023-11-27] MEDS: MONTELUKAST SODIUM 10 MG TABLET PO SCH (09:42)
--- NOTE | 2023-11-27 12:30 | Discharge Summary ---
Date of Service November 27, 2023 Admission HPI Per Admitting Provider Shannon is a 77-year-old female with PMH of asthmaCOPD overlap, HLD, depression, chronic sinusitis, and osteopenia. She presented for worsening SOB and cough x 2 months. She has been to the ED 3 times within the past 5 days. She feels that this is a COPD exacerbation that is unable to clear up. She was seen by pulmonology on 11/16/2023 and received 125 mg Solu-Medrol and DuoNeb in the office; sent home on 20 mg twice daily prednisone taper x 5 days. She endorses SOB with exertion and at rest; it is worse with exertion. It is not positional (not worse when laying flat). Patient reports that she could barely get out of the shower this morning because she was too short of breath. She has been using hypertonic saline 7% nebulizers at home 4 times daily, which she reports helps. Patient reports that she has a pulse ox at home, and that she is normally in the low 90% range. She denies smoking, tobacco use, and alcohol use. She reports that she took all of her regular morning medications; no recent changes in medications. Patient lives alone. No recent falls or fainting. Patient also notes that she occasionally feels intermittent periods of warmth with chest palpitations. Patient had an episode of 87% SpO2 in the ED. Her vitals are stable at time of admission, after receiving second DuoNeb treatment. ED course: DuoNeb 3 mL x 2 Solu-Medrol 125 mg IV ROS: Patient endorses SOB with exertion and at rest, productive cough (clear sputum production), pleuritic CP, wheezing, chest heaviness, intermittent chest palpitations, and dizziness when standing. Patient denies fever, chills, sweating, chest pain, MCKEE, hemoptysis, abdominal pain, N/V/D, dysuria, burning with urination, numbness and tingling aches in the arms or legs. Principal Diagnosis acute exacerbation of chronic lung disease Discharge Exam tachypneic no wheezed good air movement Discharge Data Allergies Allergy/AdvReac Type Severity Reaction Status Date / Time No Known Drug Allergies Allergy Verified 11/16/23 09:23 Consultations 11/24/23 13:21 ED Decision to Admit Stat 11/26/23 13:03 Consult Pulmonology Routine Ordered Studies Chest X-Ray 11/24/23 11:20 SINGLE VIEW CHEST CLINICAL HISTORY: Dyspnea FINDINGS: An AP, portable, upright chest radiograph is compared to chest x-ray and chest CT dated 11/02/2023. The cardiomediastinal silhouette is unremarkable noting atherosclerotic calcification of the thoracic aorta. Emphysema and chronic interstitial thickening is similar to previous. There is bibasilar scarring/atelectasis. No airspace consolidation or pleural effusion is identified. No pneumothorax is seen. The skeletal structures are osteopenic. The bony thorax is grossly intact. IMPRESSION: Emphysematous change with no active disease in the chest. Electronically signed by: Luis Gardiner M.D. 11/24/2023 11:55 AM Abdomen/Pelvis CT 11/25/23 13:[address] WITH ORAL CONTRAST CT DOSE: HISTORY: unexplained weight loss TECHNIQUE: Multiaxial CT images of the abdomen and pelvis were performed following the use of oral contrast. A dose lowering technique was utilized adhering to the principles of ALARA. COMPARISON STUDY: Abdomen and pelvis CT 05/17/2018. FINDINGS: The lung bases will be reported on the same day chest CT. No pneumoperitoneum. No pneumatosis. No acute fractures identified. No suspicious lytic or blastic osseous lesions. Mild levoscoliosis within the lumbar spine. The unenhanced liver, gallbladder, pancreas, adrenal glands, and kidneys are unremarkable. There is a punctate calcified granuloma within the spleen. No renal or ureteral stones. No hydronephrosis. There is a left retroaortic renal vein. No retroperitoneal or pelvic lymphadenopathy. Moderate calcified plaque within the normal caliber abdominal aorta. No pelvic free fluid. The bladder is mildly distended. No bladder wall thickening. The uterus and adnexa are unremarkable. No bowel wall thickening or obstruction. IMPRESSION: 1. No bowel wall thickening or obstruction. 2. No renal or ureteral stones. No hydronephrosis. 3. The bladder is mildly distended. 4. The lung bases will be reported on the same day chest CT. Electronically signed by: Santhosh Tan M.D. 11/25/2023 4:[address] 11/25/23 13:41 CT chest diagnostic wo con CT DOSE: 1442.82 mGy.cm CLINICAL HISTORY: 77 years-old Female with wt loss follow up from october. Acute weight loss. TECHNIQUE: Multiaxial CT images of the chest were performed without contrast. A dose lowering technique was utilized adhering to the principles of ALARA. COMPARISON: CT abdomen and pelvis of same day, CTA chest 11/02/2023. FINDINGS: Unremarkable thyroid. No lymphadenopathy. Heart is normal in size without pericardial effusion. Moderate to extensive coronary artery calcifications. Atherosclerosis of the thoracic aorta without aneurysm. No pneumothorax, pleural effusion or overt pulmonary edema. Right apical pleural parenchymal scarring. Mild pulmonary emphysema with areas of mild subpleural fibrosis and atelectasis. Bronchial wall thickening with mild right basilar predominant mucous plugging. There are a few tiny tree-in-bud nodules in the right lung base measuring 1-2 mm which are likely infectious or inflammatory. No suspicious pulmonary nodules or masses. Tiny left Bochdalek hernia. No acute upper abdominal abnormality. Soft tissues are within normal limits. No acute fracture. No destructive bone lesions. IMPRESSION: 1. Emphysema with near complete resolution of the previously described tree-in-bud nodules compatible with resolving infectious or inflammatory bronchiolitis. 2. Mild bronchitis with decreased mucous plugging. 3. No pleural effusion or lymphadenopathy. Electronically signed by: Chung Hankins M.D. 11/25/2023 5:08 PM Hospital Course (1) Acute exacerbation of chronic obstructive pulmonary disease (COPD): subjective Worsening SOB and productive cough x 2mo CXR revealed emphysematous change with no active disease in the chest Echocardiogram normal EF, no RWMA, no sig valvular changes BioFire negative although no pneumonia will use azithromycin for anti-inflammatory affects and treat bronchitis Pt with abnormal Chest CT in 10/29, recommend follow up for resolution, with wt loss will Ct Chest Abdomen and pelvis DuoNeb QIDR, Solu-Medrol 40 mg IV TID-transition to prednisone on 11/27 home on tapering dose Incentive spirometry Flutter valve QID Guaifenesin 600 mg p.o. q12h for cough continue home hypertonic salie nebs Typically needs nocturnal oxygen consult pulmonary medicine will follow up in short time as outpt, discussed volume reduction surgery a possibility (2) Depression: Continue escitalopram (3) Hyperlipidemia: Continue simvastatin (4) GERD (gastroesophageal reflux disease): Continue omeprazole, or pantoprazole equivalent Plan Full code Total Time Total Time Spent Total Time Spent (In Minutes): It required less than 30 minutes to prepare this patient for discharge. Discharge Plan Discharge Items Patient Disposition: Home - Self-Care Reason For Visit: ACUTE ON CHRONIC COPD EXACERBATION Discharge Diagnosis: copd exacerbation Activity: Resume your previous activity Non-emergency contact: Primary Care Provider and Metal Furniture Repairer Call non-emergency contact if: your symptoms worsen Follow-up/Referrals: Janelle Conroy MD [Primary Care Provider] - Diet: Regular Diet Comment: keep high sugar foods to a minimum Addtl Attending Provider Instructions: please complete tapering doses of prednisone and the last few doses of antibiotic take care going in to cold air as this can cause some shortness of breath be sure to keep you inhalers on schedule and follow up with Dr Watters Pending Studies at Discharge: No Stand-Alone Forms: My All My Data, Smoking Cessation Medications and DC Order Prescriptions: New azithromycin 250 mg Tablet 250 mg PO QAM Qty: 3 0RF prednisone 10 mg tablet 10 mg PO DIRECTED Qty: 40 0RF Rx Instructions: 4 a day x 4 d>3 a day x 4 d>2 a day x 4 d>1 a day Continued simvastatin 20 mg tablet 10 mg PO QAM Qty: 90 3RF Rx Instructions: 20 mg orally take one half tablet daily; montelukast [Singulair] 10 mg tablet 10 mg PO DAILY Qty: 90 3RF cetirizine-pseudoephedrine [Allergy Relief-D (cetirizine)] 5-120 mg tablet extended release 12 hr 1 tab PO Q12H PRN (Reason: allergy symptoms) Qty: 60 1RF Rx Instructions: Verified with pulmonary visit on 11/16/22 escitalopram oxalate 10 mg tablet 10 mg PO QAM Qty: 90 3RF albuterol sulfate 90 mcg/actuation HFA aerosol inhaler 2 inh inhalation QID PRN (Reason: shortness of breath or wheezing) Qty: 8.5 5RF Breztri Aerosphere 160-9-4.8 mcg/actuation HFA aerosol inhaler 2 inh inhalation DAILY guaifenesin [Mucinex] 600 mg tablet extended release 12hr 600 mg PO BID Rx Instructions: Verified with pulmonary visit on 11/16/22 PreserVision AREDS 4,296 mcg-226 mg-90 mg capsule 1 cap PO BID Rx Instructions: Verified with pulmonary visit on 11/16/22 ipratropium-albuterol 0.5 mg-3 mg(2.5 mg base)/3 mL solution for nebulization 3 ml inhalation Q6H PRN (Reason: wheezing) Qty: 90 5RF cholecalciferol (vitamin D3) [Vitamin D3] 50 mcg (2,000 unit) Capsule 50 mcg PO QAM Rx Instructions: Verified with pulmonary visit on 11/16/22 multivitamin Tablet 1 tab PO QAM Rx Instructions: Verified with pulmonary visit on 11/16/22 sodium chloride 7 % Solution For Nebulization 4 ml NEB BIDR Qty: 120 0RF omeprazole 20 mg capsule,delayed release(DR/EC) 20 mg PO QAM hydroxyzine HCl 25 mg tablet 25 mg PO HS Discharge Orders: Discharge Order (Routine); Ordered 11/27/23 Ordered By: Austin Jackson Admission Data Admit Date/Time: 11/24/23 13:31 Attending Provider: Austin Jackson Admit Provider: Mendel Goodman Primary Care Provider: Janelle Conroy Other Providers: Mendel Goodman; Edil Pelletier Other Interventions: Discharge Summary Assessment (RN) Last Done: 11/27/23 10:22 Coding Level of Care Code 56511 IN/OBS DISCH 30 MIN/LESS Diagnoses Acute exacerbation of chronic obstructive pulmonary disease (COPD) J44.1 Depression F32.A Hyperlipidemia E78.5 GERD (gastroesophageal reflux disease) K21.9
== END 2023-11-27 12:07 | disposition home or self-care (01) | DRG 192 ==
LOC: ED 10:27 → SUATTDRO 13:31 → 2N 13:31